=== PATIENT | male | born 1970 | race Caucasian/White ===

== ENCOUNTER 2022-04-01 13:59 | Observation (INO) | payer BC, SELFPAY ==
[2022-04-01] VITALS (72 sets, daily range): BP systolic 120–169; BP diastolic 67–92; PULSE 58–98; RESP 10–30; TEMP 37–37.3; O2SAT 90–98
--- NOTE | 2022-04-01 14:30 | DI.CT_ITS ---
Exam(s) CT HEAD CERVICAL SPINE WO EXAM: CT HEAD CERVICAL SPINE WO COMPARISON: No exams were available for comparison FINDINGS: CT examination of the cervical spine was performed without contrast administration. There is no evidence of acute cervical spine fracture or dislocation. Intervertebral disc spaces are well maintained. Tracheolaryngeal structures appear intact. No cervical mass or adenopathy. Noncontrast cranial CT was performed. Ventricular system is normal in appearance. No evidence of acute intracranial hemorrhage, mass effect, or midline shift. No calvarial fracture. The orbital and temporal bone structures appear intact. Visualized mastoid air cells and paranasal sinuses appear clear. IMPRESSION: No evidence of acute cervical spine injury. No evidence of acute intracranial injury. RADIATION DOSE DELIVERED: 1,394.49mGy.cm Total DLP 1,394.49mGy.cm Total DLP !Error CTDIvol DATA REPOSITORY: All CT scans at this facility are submitted to the National Radiology Data Registry (NRDR) Dose Index Registry (DIR) with the [employer] ([employer]). RADIATION OPTIMIZATION: All CT scans at this facility use at least one of these dose optimization te chniques: automated exposure control; mA and/or kV adjustment per patient size (includes targeted exa ms where dose is matched to clinical indication); or iterative reconstruction.
--- NOTE | 2022-04-01 14:40 | DI.CT_ITS ---
Exam(s) CT CHEST/ABD/PEL W CT THORACIC LUMBAR SPINE REC EXAM: CT CHEST/ABD/PEL W TECHNIQUE: CT examination of the chest, abdomen, and pelvis was performed with bolus infusion of 100 cc of Omnipaque 350. COMPARISON: CT CT THORACIC LUMBAR SPINE REC from 04/01/[address] CHEST/ABD/PEL W from 04/01/2022 FINDINGS: There is no evidence of a thoracic vascular injury. The lungs are predominantly clear except for brenda e subpleural medial right basilar lung radiodensities which are nonspecific but which could represent small areas of contusion and/or atelectasis.. No pneumothorax or pleural effusion. No mediastinal h ematoma. No adenopathy in the chest. Tracheobronchial tree appears intact. The liver, spleen, and pancreas appear normal. Gallbladder and bile ducts are normal. Adrenals and kidneys are unremarkable. No evidence of urinary tract injury or obstruction. No abdominal or pelvic vascular injury seen. No abdominal or pelvic adenopathy. No significant abdomi nal wall hernia or hematoma. No evidence of bowel injury. 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 No fracture seen in the region surveyed.. IMPRESSION: Question minimal right lung base pulmonary contusion, otherwise no evidence of acute injury of the ch est, abdomen, or pelvis. RADIATION DOSE DELIVERED: 1922.27 mGy.cm Total DLP 1922.27 mGy.cm Total DLP !Error CTDIvol DATA REPOSITORY: All CT scans at this facility are submitted to the National Radiology Data Registry (NRDR) Dose Index Registry (DIR) with the [employer] ([employer]). RADIATION OPTIMIZATION: All CT scans at this facility use at least one of these dose optimization te chniques: automated exposure control; mA and/or kV adjustment per patient size (includes targeted exa ms where dose is matched to clinical indication); or iterative reconstruction.
[2022-04-01] MEDS: HYDROmorphone 2 MG/ML VIAL 1 MG IVP ×2 (14:44→15:58)
[2022-04-01] MEDS: Normal Saline 1,000 ML 1000 ML IV (14:46)
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
[2022-04-01 14:58] LABS: Abs Immature Grans 0.06 10^3/uL (0.0-0.06); Absolute Basophil Count 0.04 10^3/uL (0.0-0.2); Absolute Eosinophil Count 0.12 10^3/uL (0.0-0.7); Absolute Lymphocyte Count 1.29 10^3/uL (1.2-3.4); Basophils % 0.4; Eosinophils % 1.1; HCT 44.8 % (40.0-50.0); Immature Grans % 0.5; Lymphocytes % 11.6; MCH 29.2 pg (27.0-33.0); MCHC 33.5 % (32.0-36.0); MCV 87 fL (80-95); MPV 9.6 fL (8.0-11.0); Monocytes % 7.2; Neutrophils % 79.2; Platelet Count 231 10^3/uL (130-400); RBC 5.14 10^6/uL (4.36-5.78); RDW 13.2 % (11.8-14.1); RDW-SD 41.9 fL; WBC 11.13 10^3/uL (4.4-10.8)
[2022-04-01 15:01] LABS: Absolute Neutrophil Count 8.81 10^3/uL (1.2-6.7)
[2022-04-01] MEDS: Omnipaque 350 MG/ML 100 ML BTL IJ (15:07)
[2022-04-01] MEDS: Normal Saline Flush 10 ML SYR IVP (15:07)
[2022-04-01 15:14] LABS: ALT 59 U/L (16-63); AST 32 U/L (15-37); Albumin 3.7 g/dL (3.4-5.0); Alkaline Phosphatase 72 U/L (46-116); Anion Gap 6.6 mmol/L (3-11); BUN 14 mg/dL (7-18); Bilirubin, Total 0.4 mg/dL (0.2-1.0); CO2 29.4 mmol/L (21.0-32.0); CREATININE 1.1 mg/dL (0.70-1.30); Chloride 105 mmol/L (98-107); Glucose 130 mg/dL (74-106); Potassium 3.7 mmol/L (3.5-5.1); Sodium 141 mmol/L (136-145); Total Protein 7.1 g/dL (6.4-8.2)
[2022-04-01 17:20] LABS: Source Nasal/Nares
[2022-04-01] MEDS: diazePAM 5 MG TAB PO (17:36)
[2022-04-01] MEDS: Acetaminophen 500 MG TAB 1000 MG PO ×2 (17:45→23:53)
[2022-04-01 17:54] LABS: COVID-19 PCR Negative (Negative)
[2022-04-01] MEDS: Ketorolac 15 MG/ML VIAL IVP ×2 (17:57→23:53)
--- OUTSIDE RECORDS SUMMARY | 2022-04-01 18:21 | XMS_ITS | Encounter Summary ---
:[address] [facility] Address [address] [place] [address] Care Team Providers Name Role Phone Minda Chaparro MD Primary Care Provider [phone] Reason for Visit Reason Comments Chest Pain Pt ambulatory to triage with , reports sudden onset of left-sided non-radiating chest pressure 5/10, constant, no precipitating or palliative factors. Denies n ausea, diaphoresis or SOB. No cardiac hx. Pt was working with insulation covered in mice feces yesterday. Encounter Details Date Type Department Care Team Description 09/12/2020 Emergency [facility] Peter Amato MD Chest pain, Emergency Department [address] [facility] unspecified type - [facility] (Primary Dx) [address] [facility], [address] 1 [place], [place] [id number] [place] [address] [phone] [id number] (Wo rk) Social History Tobacco Use Types Packs/Day Years Used Date Never Smoker Smokeless Tobacco: Never Used Alcohol Use Standard Drinks/Week Comments No 0 (1 standard drink = 0.6 oz pure alcoho l) Sex Assigned at Date Recorded Not on file COVID-19 Exposure Response Date Recorded In the last month, have you been in contact with No / Unsure 09/12/2020 11:52 EST someone who was confirmed or suspected to have Coronavirus / COVID-19? documented as of this encounter Last Filed Vital Signs Vital Sign Reading Time Taken Comments Blood Pressure 110/64 09/12/2020 1555 EST Pulse 75 09/12/2020 1510 EST Temperature 36.3 ??C (97.3 ??F) 09/12/2020 1151 EST Respiratory Rate 16 09/12/2020 1555 EST Oxygen Saturation 98% 09/12/2020 1555 EST Inhaled Oxygen Concentration - - Weight 97.5 kg (215 lb) 09/12/2020 1151 EST Height 177.8 cm (5' 10) 09/12/2020 1151 EST Body Mass Index 30.85 09/12/2020 1151 EST documented in this encounter Functional Status Functional Status Response Date of Assessment Because of a physical, mental, or emotional condition, No 09/14/2016 does this person have difficulty doing errands alone such as visiting a doctor's office or shopping? Cognitive Status Response Date of Assessment Because of a physical, mental, or emotional condition, No 09/14/2016 does this person have serious difficulty concentrating, remembering, or making decisions? documented as of this encounter Discharge Instructions Peter Mujica MD - 09/12/2020 Try ibuprofen or Tylenol for the pain. Call your regular doctor for follow-up this week. Return if pain gets worse, more central, more severe or if you have increasing shortness of breath, dizziness fainting, fever, cough or any other new symptoms. documented in this encounter Medications at Time of Discharge Medication Sig Dispensed Refills Start Date End Date fluticasone (FLONASE) 50 Instill 1 [place] into 1 Bottle 1 1 mcg/actuation nasal spray both nostrils daily. loratadine (CLARITIN) 10 Take 10 mg by mouth 0 mg tablet daily. documented as of this encounter Discharge Disposition Disposition Code Departure Means Destination Comments Home or Self Mcc Pt D/C to home, verbalized understanding i nstructions. Pt denies any pain , nausea. VSS documented in this encounter ED Notes Peter Amato MD - 09/12/2020 1224 EST This patient received an evaluation and medical screening exam for emergent medical conditions at the [facility] on 09/12/2020 Scribe attestation: This documentation is recorded by Shar Ambrose acting as Scribe under the direction and presence of Peter Amato MD. Peter Amato MD: I personally performed the services recorded by the scribe in my presence. I confirm the scribe's documentation has been reviewed by me to accurately and completely record my work, treatment, procedures, and medical decision making. HPI Brian Wu is a 50 y.o. male with PMH including elevated cholesterol who presents to theED for chest pressure. Patient reports at 0900 today he was working on his computer when he experienced the gradual onset of chest pressure to the top of his chest. He specifically denies any chest pain. This pressure is aggravated by deep inspiration and he has had trouble taking in a deep breath. Symptoms have been relatively constant since onset. Brian has never had this pain in the past. Hemade us aware that yesterday he and his spouse were putting up insulation in their garage and notes it was quite ronni and they were a fairly large amount of mouse feces in the old insulation. They were not wearing dust mask.. He has had a runny nose since applying the insulation. This runny nose is consistent with his priorallergies. He has no personal history of HTN, DM, or lower extremity surgeries. Patient denies lowerextremity swelling, recent travel, and shortness of breath. Vitals are stable upon ED arrival. SHx: Denies a smoking history. FHx: No known family history of cardiac issues. History was provided by: Patient, spouse, and medical records. Patient's pertinent PMH, FH, SH were reviewed and updated as needed. ROS A 10-point review of systems was performed. The patient answered negative to all questions with the exceptions of those explicitly detailed as positives in the HPI. Pertinent negatives are also explicitly stated. Physical Exam Vital Signs Vitals Reassessment?: Yes Temp: 36.3 ??C (97.3 ??F) Temp src: Oral Pulse: 53 Resp: 16 SpO2: 98 % BP: 133/84 BP Device: BP Machine BP Patient Position: Sitting BP Cuff Location: Right arm O2 Device: None (Room air) Nursing notes and vital signs were reviewed. Constitutional: Well appearing in no acute distress Head: Normocephalic and atraumatic, no tenderness Eyes: Pupils equal and reactive to light, no scleral icterus Mouth: Moist oral mucosa without apparent lesions Neck: Full ROM, no cervical lymphadenopathy Heart: Mildly bradycardic rate and regular rhythm without murmurs, gallops, rub Lungs: Clear and equal bilaterally Abdomen: Soft, nontender, nondistended, positive bowel sounds Skin: No overt rashes on exposed skin Musculoskeletal: Chest wall is completely non-tender to palpation. Extremities: Moving spontaneously, warm and well perfused. No evidence of trauma. No edema or cords. Neuro: Grossly neurologically intact with normal speech, strength, and coordination. Psych: No agitation or overt thought disorder Medical Decision Making The differential diagnosis for this patient includes but is not limited to: Spontaneous pneumothorax, PE, musculoskeletal pain, bronchospasm, ACS Laboratory, Imaging, and Other Data Results The patient had an EKG which was independently reviewed and interpreted by me. Sinus bradycardia rate of 56. ??EKG otherwise of normal QRS morphology, normal intervals and axis, normal ST and T wave segments. ??Overall impression sinus bradycardia otherwise normal EKG. Labs Reviewed COMPLETE BLOOD COUNT AND DIFFERENTIAL - Abnormal Result Value Status WBC 6.17 Final RBC 5.25 Final Hemoglobin 15.3 Final HCT 44.7 Final MCV 85 Final MCH 29.1 Final MCHC 34.2 Final RDW-CV 12.7 Final RDW-SD 39.5 Final PLT 235 Final MPV 9.2 (*) Final Neutrophils 49.8 Final Lymphocytes 35.3 Final Monocytes 11.8 Final Eosinophils 2.1 Final Basophils 0.8 Final Immature Grans 0.2 Final Absolute Neutrophils 3.07 Final Absolute Lymphocytes 2.18 Final Absolute Monocytes 0.73 Final Absolute Eosinophils 0.13 Final Absolute Basophils 0.05 Final Absolute Immature Grans 0.01 Final Type of Differential: Auto Final BUN - Normal BUN 20 Final CREATININE - Normal Creatinine 0.88 Final eGFR 100 Final ELECTROLYTES - Normal Sodium 138 Final Potassium 4.7 Final Chloride 101 Final CO2 Total 27 Final TROPONIN I - Normal Troponin I <0.034 Final Narrative: The results of this assay can be falsely lowered due to the consumption of Biotin. MAGNESIUM - Normal Magnesium 1.9 Final SCREENING GLUCOSE - Normal Glucose, Screening 84 Final D-DIMER - Normal D-Dimer <200 Final Narrative: Cutoff value for the exclusion of DVT and PE: 230 ng/mL D-dimer units. Any use of the age-adjusted cutoff value is a post-analytic modification of this FDA- approved test and is considered off-label use of the test result. [facility] laboratory does not have literature to support the validity of an age-adjusted cutoff for our specific assay. TROPONIN I - Normal Troponin I <0.034 Final Narrative: The results of this assay can be falsely lowered due to the consumption of Biotin. HOLD BLUE TOP Hold Hold Final LIPID PROFILE (INCLUDES CHOLESTEROL, TRIGLYCERIDES, HDL, LDL) Cholesterol 250 Final HDL 46 Final LDL, Calculated 195 Final Triglyceride 47 Final Chol/HDL Ratio 5.4 Final Non HDL Cholesterol 204 Final Imaging Results XR CHEST 2 VIEWS (Final result) Result time 09/12/20 13:04:54 Final result Impression: 1. Mild cardiomegaly. The lungs are clear. Narrative: XR CHEST 2 VIEWS 09/12/2020 12:40 PM CLINICAL HISTORY/COMMENTS: L CP, pleuritic COMPARISON: None. TECHNIQUE: Frontal and lateral views of the chest were performed. FINDINGS: Soft tissues and extrathoracic findings: No abnormalities. Bones: Normal for age. Cardiac and mediastinal contours: Heart size is mildly enlarged. Mediastinum appears normal. Lungs: Normal. Pleura/diaphragms: Normal. (All pertinent data was obtained, reviewed, and interpreted by me, contemporaneously with patient care. Radiology interpretation also reviewed, if available.) Procedures Procedures ED Course A medical screening exam was performed. Patient presents with somewhat atypical left upper lateral chest pain. There is no real tenderness and no pain with movement of the arm. Vital signs are stable here. No history of ACS and has minimal risk factors for ACS. Overall the presentation is not particular concerning for coronary artery disease but will evaluate for other process including pulmonary embolus. Labs were drawn and were normal including normal D-dimer. Initial troponin normal. Second troponin done about 3 hours after presentation remains normal. Chest x-ray was also normal. At this point life-threatening or severe cause of the chest pain have effectively been ruled out. Certainly could be due to inhaling dust yesterday with some mild subclinical bronchospasm although he is not wheezing and has normal vitals. May also be musculoskeletal or pleuritic pain. I think he is sta ble for outpatient management. Recommended ibuprofen or Tylenol for the pain. Follow-up with PCP. Warned to return if he has worsening pain, more central pain, shortness of breath dizziness fever or other new symptoms. He was discharged in stable condition. Clinical Impression Final diagnoses: Chest pain, unspecified type Pain Management While under my care in the Emergency Department, the patient's pain was managed to an adequate levelweighing risk vs. benefit of medication. Pain level at disposition was 3/10. Any further pain treatment will be at the discretion of the provider following up with the patient based on their clinical assessment. Condition at departure from the Emergency Department: Stable Disposition Disposition decisions were made weighing risks and benefits of hospitalization vs. outpatient treatment, the risk for further decompensation, and the patient's wishes. - If discharged: the patient was stable, improved, or requested discharge. Prior to discharge my usual and customary return precautions were reviewed with the patient and/or family. This included follow-up instructions and reasons to return to the Emergency Department if condition worsens, does not improve as expected, or other new concerns arise. - If admitted: the patient???s condition was severe enough to require additional inpatient evaluation and treatment, or the patient was at risk of sudden decompensation. Sarah Clark - 09/12/2020 1153 EST 12 Lead EKG Performed by SARAH YBARRA and shown to Dr. Cordova. documented in this encounter Plan of Treatment Not on filedocumented as of this encounter Goals Goal Patient Goal Associated Recent Patient-Stated? Author Type Problems Progress LDL < 100 Result Component Elevated 195 No [place], cholesterol (09/12/2020 Lorenza Vazquez 12:04 EST) documented as of this encounter Procedures Procedure Name Priority Date/Time Associated Comments Diagnosis ECG REPORT - SCANNED 09/19/2020 12:32 EST TROPONIN I Routine 09/12/2020 15:10 Results for this EST procedure are i n the results section. XR CHEST 2 VIEWS STAT 09/12/2020 12:55 Results for this EST procedure are i n the results section. HOLD BLUE TOP STAT 09/12/2020 12:04 Results fo r this EST procedure are i n the results section. SCREENING GLUCOSE STAT 09/12/2020 12:04 Result s for this EST procedure are i n the results section. TROPONIN I STAT 09/12/2020 12:04 Results for this EST procedure are i n the results section. D-DIMER STAT Add-on 09/12/2020 12:04 Results for this EST procedure are i n the results section. COMPLETE BLOOD COUNT STAT 09/12/2020 12:04 Res ults for this AND DIFFERENTIAL EST procedure a re in the results section. BUN STAT 09/12/2020 12:04 Results for this EST procedure are i n the results section. MAGNESIUM STAT 09/12/2020 12:04 Results for this EST procedure are i n the results section. CREATININE STAT 09/12/2020 12:04 Results for this EST procedure are i n the results section. LIPID PROFILE Add-On 09/12/2020 12:04 Results fo r this (INCLUDES EST procedure are i n CHOLESTEROL, the results TRIGLYCERIDES, HDL, section. LDL) ELECTROLYTES STAT 09/12/2020 12:04 Results for this EST procedure are i n the results section. EKG 12-LEAD STAT 09/12/2020 11:49 Results for this EST procedure are i n the results section. documented in this encounter Results TROPONIN I (09/12/2020 15:10 EST) Pathologist Sig nature Troponin I (ng/mL) <0.034 <0.034 ng/mL [facility] Specimen Blood - Venous blood (substance) Narrative [facility] - 09/12/2020 15:50 EST The results of this assay can be falsely lowered due to the consumption of Biotin. Performing Organization Address City/State/ZIP Code Phon e Number [facility] [address] [place] [address] SERVICES XR CHEST 2 VIEWS (09/12/2020 12:55 EST) Anatomical Region Laterality Modality Computed Radiography Specimen Impressions [facility] - 09/12/2020 13:04 EST 1. ??Mild cardiomegaly. The lungs are cl ear. Narrative [facility] - 09/12/2020 13:04 EST XR CHEST 2 VIEWS ??09/12/2020 12:40 PM CLINICAL HISTORY/COMMENTS: L CP, pleuritic COMPARISON: None. TECHNIQUE: Frontal and lateral views of the chest w ere performed. FINDINGS: Soft tissues and extrathoracic findings: ??No abnormalities. Bones: Normal for age. Cardiac and mediastinal contours: Heart size is mildly enlarged. Mediastinum appears normal. Lungs: Normal. ?? Pleura/diaphragms: Normal. Procedure Note Karely Thompson MD - 09/12/2020 XR CHEST 2 VIEWS 09/12/2020 12:40 PM CLINICAL HISTORY/COMMENTS: L CP, pleuritic COMPARISON: None. TECHNIQUE: Frontal and lateral views of the chest w ere performed. FINDINGS: Soft tissues and extrathoracic findings: No abnormalities. Bones: Normal for age. Cardiac and mediastinal contours: Heart size is mildly enlarged. Mediastinum appears normal. Lungs: Normal. Pleura/diaphragms: Normal. IMPRESSION 1. Mild cardiomegaly. The lungs are franco r. Performing Organization Address City/State/ZIP Code Phon e Number [facility] LIPID PROFILE (INCLUDES CHOLESTEROL, TRIGLYCERIDES, HDL, LDL) (09/12/2020 12:04 EST) Cholesterol 250 See Note [facility] Comment: mg/dL [facility] Acceptable: ?<200 mg/dL SERVICES Borderline High: 200-239 mg/dL High: ?> or = 240 mg/dL HDL 46 See Note [facility] Comment: mg/dL [facility] Low: ? <40 mg/dL SERVICES Normal: ??40-60 mg/dL High: ?>60 mg/dL LDL, Calculated 195 See Note [facility] Comment: mg/dL [facility] Optimal: ? <100 mg/dL SERVICES Near Optimal: ?100-129 mg/dL Borderline High: 130-159 mg/dL High: ?160-189 mg/dL Very High: ? > or = 190 mg/dL Triglyceride 47 See Note [facility] Comment: mg/dL [facility] Normal: ? <150 mg/dL SERVICE S Borderline High: ??150 - 199 mg/dL High: ? 200 - 499 mg/dL Very High: ?> or = 500 mg/dL Chol/HDL Ratio 5.4Comment: No See Note [facility] reference range [facility] has been SERVICES established for CHOL/HDL ratio. Non HDL Cholesterol 204 See Note [facility] Comment: mg/dL [facility] Desirable: ?<130 mg/dL SERVICES Borderline High: ??130-159 mg/dL High: ? 160-189 mg/dL Very High: ?> or = 190 mg/dL Specimen Blood - Venous blood (substance) Performing Organization Address City/[facility]/ZIP Code Phon e Number [facility] [address] [place] [address] SERVICES D-DIMER (09/12/2020 12:04 EST) Pathologist Sig nature D-Dimer <200 <=230 ng/mL DDU [facility] Specimen Blood - Venous blood (substance) Narrative [facility] - 09/12/2020 12:49 EST Cutoff value for the exclusion of DVT and PE: 230 ng/mL D-dimer units. Any use of the age-adjusted cu toff value is a post-analytic modificati on of this FDA-approved test and is considered off-label use of the test result. [facility] laboratory does not have literature to support the validity of an age-adjusted cutoff for our specific assay. Performing Organization Address City/[facility]/ZIP Code Phon e Number [facility] [address] [place] [phone] SERVICES HOLD BLUE TOP (09/12/2020 12:04 EST) Pathologist Sig nature Hold Hold [facility] Specimen Blood - Venous blood (substance) Performing Organization Address City/[facility]/ZIP Code Phon e Number [facility] [address] [place] [address] SERVICES SCREENING GLUCOSE (09/12/2020 12:04 EST) Pathologist Sig nature Glucose, Screening 84 70 - 100 mg/dL [facility] Specimen Blood - Venous blood (substance) Performing Organization Address [facility]/ZIP Code Phon e Number [facility] [address] [place] [address] SERVICES MAGNESIUM (09/12/2020 12:04 EST) Pathologist Sig nature Magnesium 1.9 1.7 - 2.8 mg/dL [facility] Specimen Blood - Venous blood (substance) Performing Organization Address City/State/ZIP Code Phon e Number [facility] [address] [place] [phone] SERVICES TROPONIN I (09/12/2020 12:04 EST) Pathologist Sig nature Troponin I (ng/mL) <0.034 <0.034 ng/mL [facility] Specimen Blood - Venous blood (substance) Narrative [facility] - 09/12/2020 12:44 EST The results of this assay can be falsely lowered due to the consumption of Biotin. Performing Organization Address City/[facility]/ZIP Code Phon e Number [facility] [address] [place] [phone] SERVICES ELECTROLYTES (09/12/2020 12:04 EST) Pathologist Sig nature Sodium 138 136 - 145 mEq/L [facility] Potassium 4.7 3.5 - 5.0 mEq/L [facility] Chloride 101 96 - 110 mEq/L [facility] ORY SERVICES CO2 Total 27 22 - 32 mEq/L [facility] RY SERVICES Specimen Blood - Venous blood (substance) Performing Organization Address [facility]/ZIP Code Phon e Number [facility] [address] [place] [phone] SERVICES CREATININE (09/12/2020 12:04 EST) Creatinine 0.88 0.66 - 1.25 [facility] mg/dL LABORATORY SERVICES eGFR 100Comment: eGFR >60 [facility] calculated using mL/min/1.73m2 LABORATORY SERVICES CKD-EPI equation for non- Americans. Multiply eGFR by 1.16 for patients. Specimen Blood - Venous blood (substance) Performing Organization Address City/State/ZIP Code Phon e Number [facility] [address] [place] [phone] SERVICES BUN (09/12/2020 12:04 EST) Pathologist Sig nature BUN 20 10 - 26 mg/dL [facility] RY SERVICES Specimen Blood - Venous blood (substance) Performing Organization Address City/[facility]/ZIP Code Phon e Number [facility] [address] [place] [address] SERVICES (ABNORMAL) COMPLETE BLOOD COUNT AND DIFFERENTIAL (09/12/2020 12:04 EST) Pathologist Sig nature WBC 6.17 4.00 - 10.40 [facility] LABORATORY SERVICES RBC 5.25 4.36 - 5.78 [facility] LABORATORY SERVICES Hemoglobin 15.3 13.8 - 17.3 [facility] gm/dL LABORATORY SERVICES HCT 44.7 39.5 - 50.2 % [facility] MCV 85 81 - 95 fl [facility] MCH 29.1 27.6 - 33.0 pg [facility] MCHC 34.2 32.8 - 36.4 [facility] gm/dL LABORATORY SERVICES RDW-CV 12.7 <14.2 % [facility] RDW-SD 39.5 <46.0 fl [facility] PLT 235 141 - 377 K/[facility] LABORATORY SERVICES MPV 9.2 (L) 9.5 - 12.7 fl [facility] Neutrophils 49.8 % [facility] Lymphocytes 35.3 % [facility] Monocytes 11.8 % [facility] Eosinophils 2.1 % [facility] Basophils 0.8 % [facility] Immature Grans 0.2 % [facility] Absolute Neutrophils 3.07 2.20 - 8.85 [facility] LABORATORY SERVICES Absolute Lymphocytes 2.18 1.09 - 3.30 [facility] LABORATORY SERVICES Absolute Monocytes 0.73 0.10 - 0.80 [facility] LABORATORY SERVICES Absolute Eosinophils 0.13 0.03 - 0.61 [facility] LABORATORY SERVICES Absolute Basophils 0.05 0.01 - 0.11 [facility] LABORATORY SERVICES Absolute Immature 0.01 0.00 - 0.06 [facility] SERVICES Type of Differential: Auto [facility] Specimen Blood - Venous blood (substance) Performing Organization Address City/State/ZIP Code Phon e Number [facility] [address] [place] [address] SERVICES EKG 12-LEAD (09/12/2020 11:49 EST) Specimen Narrative [facility] EKG - 09/19/2020 12:2 6 EST ?[facility] Emergency ? Test Date: ?2020-09-12 Pat Name: ? BRIAN WU ? Department: ?? ED ? Room: ? Gender: ? Male ? 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 Requested By: RAVEN HEDRICKH Order Number: [id number] ? Reading MD: ?? PERRY JULIAN MD ? Measurements Intervals ?[place] ? Rate: ? 56 ? P: ?56 MT: ? 155 ?QRS: ?51 QRSD: ? 95 ? T: ?53 QT: ? 387 ? QTc: ?374 ? Interpretive Statements [facility] Automated Interpretation. ??Provider Int erpretation to follow. No previous ECG available for comparison I reviewed the tracing and have either a greed or edited the findings in this report. Electronically Signed On 12:26:44 EST by PERRY JULIAN MD. 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 Provider Inter pretation to follow. No previous ECG available for comparison I reviewed the tracing and have either a greed or edited the findings in this report. Electronically Signed On 12:26:44 EST by PERRY JULIAN MD. 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
--- OUTSIDE RECORDS SUMMARY | 2022-04-01 18:21 | XMS_ITS | Encounter Summary ---
:1970 Author Organization [facility] Address [address] [place] [address] Care Team Providers Name Role Phone Minda Chaparro MD Primary Care Provider [phone] Reason for Referral Referral (Routine) - Specialty Report Received Specialty Diagnoses / Procedures Referred By Contact Refer red To Contact Diagnoses Right upper limb pain Rosamaria Espino, ROMA [address] [place] [address] Referral ID Status Reason Start Expiration Visits Visits Date Date Requested Authorized [id number] Specialty Patient 06/29/20 1 1 Report Preference 19 Received Question Answer Reason for Request: right arm pain Practice Site (External Referral Only): PT [facility] Reason for Visit Reason Onset Date Comments Referral Request 06/29/2019 Athletic Training Encounter Details Date Type Department Care Team Description 06/29/2019 Orders Only [facility] Minda Chaparro Right upp er limb pain Adult Primary Care - MD Mervat (Primary Dx) [place] [address] [facility] [address] [place] [address] [place], [place] [phone] Social History Tobacco Use Types Packs/Day Years Used Date Never Smoker Smokeless Tobacco: Never Used Alcohol Use Standard Drinks/Week Comments No 0 (1 standard drink = 0.6 oz pure alcoho l) Sex Assigned at Date Recorded Not on file documented as of this encounter Functional Status Functional Status Response [...] making decisions? documented as of this encounter Progress Notes Beulah Lauren - 06/29/2019 1430 EST PT [facility] asking for an additional referral for Athletic Training Order pended - please sign documented in this encounter Plan of Treatment Scheduled Referrals Name Type Priority Associated Diagnoses Order S chedule AMB CONS/FOLLOW UP Outpatient Referral Routine Right upper hernandez b Ordered: ATHLETIC TRAINING pain 06/29/2019 documented as of this encounter Goals Goal Patient Goal Associated Recent Patient-Stated? Author Type Problems Progress LDL < 100 Result Component Elevated 195 No Greenoug h, cholesterol (09/12/2020 Lorenza ISara 12:04 EST) documented as of this encounter Visit Diagnoses Diagnosis Right upper limb pain - Primary Pain in limb documented in this encounter Care Teams Neck Band Maker Relationship Specialty Start Date End Date Minda Chaparro MD PCP - General 02/19/[address] [place] [phone] documented as of this encounter
--- OUTSIDE RECORDS SUMMARY | 2022-04-01 18:21 | XMS_ITS | Encounter Summary ---
:1970 Author Organization [facility] Address [address] [place] [address] Care Team Providers Name Role Phone Minda Chaparro MD Primary Care Provider [phone] Reason for Visit Reason Onset Date Comments Rash 10/11/2021 Encounter Details Date Type Department Care Team Description 10/11/2021 Telephone [facility] Adult Minda Chaparro Rash Primary Care - Elmo lancaster MD [address] [facility] [address] [place] [address] [place], [place] [phone] (Wo rk) Social History Tobacco Use Types [...] making decisions? documented as of this encounter Miscellaneous Notes Telephone Encounter - Gaye Ballesteros RN - 10/11/2021 1000 EST Amrit states, last night, I was scratching my side, my noticed a rash. It is a red/bumpy rash that is on his bilateral arms, chest, stomach, low back and top of head. C/o sever itching. No respiratory distress. No new meds, food, skin care products,detergents or dog shampoo. No c/o fever, pain or blisters Used poison Migdalia cream and benadryl last night which helped him get some sleep. office visit today at 15:45 elephone Encounter - Jesica Phelps - 10/11/2021 0947 EST Pt noticed a rash/skin condition on arm, body, head. Raised bumps that are itchy and red. Came out of nowhere - Put poison migdalia cream, took benadryl - that helped with the itch documented in this encounter Plan of Treatment Not on filedocumented as of this encounter Goals Goal Patient Goal Associated Recent Patient-Stated? Author Type Problems Progress LDL < 100 Result Component Elevated 195 No Greenoug h, cholesterol (09/12/2020 Lorenzacaesar Vazquez 12:04 EST) documented as of this encounter Visit Diagnoses Not on filedocumented in this encounter Care Teams Wood Room Supervisor Relationship Specialty Start Date End Date Minda Chaparro MD PCP - General 02/19/[address] [place] [phone] documented as of this encounter
--- OUTSIDE RECORDS SUMMARY | 2022-04-01 18:21 | XMS_ITS | Encounter Summary ---
:1970 Author Organization [facility] Address [address] [place] [address] Care Team Providers Name Role Phone Minda Chaparro MD Primary Care Provider [phone] Reason for Referral PT/OT/ST (Routine) - Specialty Report Received Specialty Diagnoses / Procedures Referred By Contact Refer red To Contact Diagnoses Acute pain of right knee Leni Damico PA-C [address] [place] [address] Referral ID Status Reason Start Expiration Visits Visits Date Date Requested Authorized [id number] Specialty Specialty 03/30/2020 1 1 Report Services Received Required Question Answer Reason for Request: 2-3 weeks of right knee pain and stiffness, suspected OA Practice Site (External Referral Only): [address] Reason for Visit Reason Comments Knee Pain Right side. Telemedicine Video Visit Encounter Details Date Type Department Care Team Description 03/30/2020 Telemedicine [facility] Leni Damico raina pain of right Adult Primary Care - DONITA Hurley knee (Primary Dx) [place] [address] [facility] [address] [place] [phone] (Wo rk) Social History Tobacco Use [...] documented as of this encounter Progress Notes Leni Damico PA-C - 03/30/2020 1415 EDT Patient ID: Endy Arambula is a 49 y.o. male patient of Minda Chaparro Chief Complaint: Knee Pain (Right side. ) and Telemedicine Video Visit Visit type: Video visit on Zoom due to COVID19 pandemic History of present Illness (HPI): Patient here with complaint of right knee pain. Pain started a few weeks ago. Prior to onset had fallen a couple of times mountain biking without any specific injury. Bothers most with extending leg and climbing up stairs. Pain is located superior adjacent to patella. Pain is 10/10 at it's worst,sharpwhen being used. He has associated stiffness in the mornings and after inactivity. He denies associated swelling. Treatments tried: none. Reports he can fully bend and extend his leg with pain. Denies feeling of instability or weakness. Has been noticing clicking and popping in both joints in general. Normally mountain bikes for exercise. Review of Systems: Pertinent positives and negatives noted in HPI. Patient Active Problem List Diagnosis ??? Allergic rhinitis ??? Elevated cholesterol Current Outpatient Medications Medication Sig ??? fluticasone (FLONASE) 50 mcg/actuation nasal spray Instill 1 [place] into both nostrils daily. ??? loratadine (CLARITIN) 10 mg tablet Take 10 mg by mouth daily. No Known Allergies Social History Tobacco Use ??? Smoking status: Never Smoker ??? Smokeless tobacco: Never Used Substance Use Topics ??? Alcohol use: No Alcohol/week: 0.0 standard drinks ??? Drug use: No Objective: Physical Exam: Gen: well nourished, well developed, in no distress, sitting comfortably Psych: alert, cooperative, pleasant Respiratory: No respiratory distress. Neuro: Alert, speech is normal. Skin: No pallor or jaundice, non-diaphoretic Knee: No apparent swelling or erythema of knee. Assessment & Plan: New onset right knee pain and stiffness. Difficult to determine exact etiology without exam but I suspect it is a flare of arthritis in the knee given atraumatic onset and stiffness, possibly triggeredby previous falls. Recommended twice daily Aleve for the next 10-14 days, icing, avoiding aggravating activities and course of PT. After the visit, reviewing symptoms, I felt it would be worthwhile to rule out Lyme disease given lack of previous symptoms in knee and frequent outdoor exposure with mountain biking. Left message on identified VM reviewing this concern and asking patient to have blood test to rule out this possibility. Endy was seen today for knee pain and telemedicine video visit. Diagnoses and all orders for this visit: Acute pain of right knee - AMB CONS/FOLLOW UP PHYSICAL THERAPY; Future - LYME AB; Future Pt Ed: - There are no on file for this visit. No follow-ups on file. The concept of ???Telemedicine?? has been described to the patient.? Patient has been informed of the anticipated benefits and possible risks.? Patient understands the information provided regarding telemedicine, has had the opportunity to ask questions about this information, and all questions have been answered to patient???s satisfaction. Patient consents for the use of telemedicine in his/her medical care and authorizes the transmission of any relevant medical information to providers and theirstaff involved in patient???s medical or mental health care. TELEMEDICINE VIDEO VISIT Today's visit was provided through telemedicine video conferencing: The location of the patient : Workplace The location of the provider: Clinic Exam Room The following staff and their role did participate in today's encounter visit: Leni Damico PA-C Portions of this document may have been prepared with speech recognition software or keyboard clinical data abstractor techniques. Minor irregularities or keyboarding misprints may be present. documented in this encounter Plan of Treatment Scheduled Referrals Name Type Priority Associated Diagnoses Order S chedule AMB CONS/FOLLOW UP Outpatient Referral Routine Acute pain of r ight Expected: PHYSICAL THERAPY knee 03/30/2020 (Approximate) documented as of this encounter Goals Goal Patient Goal Associated Recent Patient-Stated? Author Type Problems Progress LDL < 100 Result Component Elevated 195 No Greenzeenatg h, cholesterol (09/12/2020 Lorenza Vazquez 12:04 EST) documented as of this encounter Visit Diagnoses Diagnosis Acute pain of right knee - Primary documented in this encounter Care Teams Glass Furnace Operator Relationship Specialty Start Date End Date Minda Chaparro MD PCP - General 02/19/[address] [place] [phone] documented as of this encounter
--- OUTSIDE RECORDS SUMMARY | 2022-04-01 18:21 | XMS_ITS | Encounter Summary ---
:1970 Author Organization [facility] Address [address] [place] [address] Care Team Providers Name Role Phone Minda Chaparro MD Primary Care Provider [phone] Reason for Visit Reason Onset Date Comments Cough 08/17/2021 Pharyngitis 08/17/2021 Nasal Congestion 08/17/2021 Encounter Details Date Type Department Care Team Description 08/17/2021 Telephone [facility] Minda Chaparro Cough; Ph aryngitis; Adult Primary Care - MD Mervat Nasal Congestion [address] [phone] Social History Tobacco Use Types Packs/Day Years Used Date Never Smoker Smokeless Tobacco: Never Used Alcohol Use Standard Drinks/Week Comments No 0 (1 standard drink = 0.6 oz pure alcoho l) Sex Assigned at Date Recorded Not on file COVID-19 Exposure Response Date Recorded In the last month, have you been in contact with someone Yes 08/17/2021 9:58 EST who was confirmed or suspected to have Coronavirus / COVID-19? documented as of this encounter Functional Status [...] this encounter Miscellaneous Notes Telephone Encounter - Minda Chaparro MD - 08/17/2021 1057 EST OK for COVID test is he wants one elephone Encounter - Gaye Ballesteros RN - 08/17/2021 1026 EST Amrit states, I had a scratchy throat on Saturday, my boss told me to get COVID tested. He did two home tests and they were both positive. Advised, per our protocol, we classify a home test that is positive as being positive that he has COVID. 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 I would like him to have a PCR test for confirmation. They Have NOT been quarantining from each other. C/o a thick throat, cough and runny nose. Patient Education Topic: covid testing Method: Verbal Taught to: Patient Barriers: None Outcomes: independent and verbalized understanding elephone Encounter - Emily Colon - 08/17/2021 0958 EST Reason for Call: Cough, Pharyngitis, and Nasal Congestion Summary/Symptoms: Pt says he had a COVID + coworker at work. Pt says he started with a scratchy throat on Saturday. 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 Pt would like a PCR test. Pt has had his vaccine & booster. Onset and Duration: see above Does the patient have a computer, laptop or smart phone with high speed & video capability? N/A If so, would they be interested in doing a video visit via Zoom? N/A Appointment Offered? No Emily Colon 08/17/2021 10:02 documented in this encounter Plan of Treatment Not on filedocumented as of this encounter Goals Goal Patient Goal Associated Recent Patient-Stated? Author Type Problems Progress LDL < 100 Result Component Elevated 195 No Greenoug h, cholesterol (09/12/2020 Lorenza Vazquez 12:04 EST) documented as of this encounter Results (ABNORMAL) COVID-19 TESTING (08/17/2021 14:24 EST) COVID-19 rt-PCR Positive (AA) Negative [facility] Result Comment: [facility] This test has not been FDA c leared or approved. This test has been authorized by FDA under an EUA for use by authorized laboratories. This test has been authorized only for detection of nucleic acid fro SERVICES m 2019-nCoV, not for any oth er viruses or pathogens. This test is only authorized for the duration of the declaration that circumstances exist justifying the authorization of emergency use of in vitro d iagnostic tests for detectio n and/or diagnosis of 2019-nCoV under section 564(b)(1) of Act, 21 U.S.C ?? 360bbb-3(b) (1), unless the authorization is terminated or revoked sooner. This test was developed and its performance characteristics determined by [facility]. It has not been cleared or approved by the US Food and Drug Administration. FDA does not require this test to go through premarket FDA review. This t est is used for clinical purposes. It should not be regarded as investigational or for research. This laboratory is certified under the Clinical Laboratory Improvement Amendm ents (CLIA) as qualified to perform high complexity clinical laboratory testing. This test is based on the CD C COVID-19 Emergency Use Authorization (EUA) assay, with minor modification as defined by the FDA Performed on the [employer] 7 Pro RT-PCR System. Performing Lab [facility] Specimen Swab - Entire nasopharynx (body structur e) Performing Organization Address City/State/ZIP Code Phon e Number [facility] [address] [place] [address] SERVICES documented in this encounter Visit Diagnoses Diagnosis Runny nose - Primary Other diseases of nasal cavity and sinus es Cough documented in this encounter Care Teams Patient Access Manager Relationship Specialty Start Date End Date Minda Chaparro MD PCP - General 02/19/[address] [place] [phone] documented as of this encounter
--- OUTSIDE RECORDS SUMMARY | 2022-04-01 18:21 | XMS_ITS | Encounter Summary ---
:1970 Author Organization [facility] Address [address] [place] [address] Care Team Providers Name Role Phone Minda Chaparro MD Primary Care Provider [phone] Reason for Referral PT/OT/ST (Routine) - Closed Specialty Diagnoses / Procedures Referred By Contact Refer red To Contact Diagnoses Right arm pain Rosamaria Espino NP [address] [place] [address] Referral ID Status Reason Start Date Expiration Date Visits V isits Requested Authorized [id number] Closed Specialty 06/19/2019 1 1 Services Required Question Answer Reason for Request: right arm pain adiology Services (Routine) - Authorization Not Required Specialty Diagnoses / Procedures Referred By Contact Refer red To Contact Diagnoses Right arm pain Rosamaria Espino NP Procedures ELBOW 2 VIEWS [address] [place] [address] Referral ID Status Reason Start Expiration Visits Visits Date Date Requested Authorized [id number] Authorization Not 06/19/2019 1 1 Required Reason for Visit Reason Comments Pain R arm Encounter Details Date Type Department Care Team Description 06/19/2019 [facility] Rosamaria Espino, Right arm pain (Primary Dx); Adult Primary Care - CHRISTMAS BELL RINGER Muscle strain of forearm, right, initial encounter [place] [address] [address] [place], [place] [phone] Social History Tobacco Use Types Packs/Day Years Used Date Never Smoker Smokeless Tobacco: Never Used Alcohol Use Standard Drinks/Week Comments No 0 (1 standard drink = 0.6 oz pure alcoho l) Sex Assigned at Date Recorded Not on file documented as of this encounter Last Filed Vital Signs Vital Sign Reading Time Taken Comments Blood Pressure 110/80 06/19/2019821 EST Pulse 68 06/19/2019821 EST Temperature 36.7 ??C (98.1 ??F) 06/19/2019821 EST Respiratory Rate 12 06/19/2019 08 EST Oxygen Saturation - - Inhaled Oxygen Concentration - - Weight 92.5 kg (204 lb) 06/19/2019821 EST Height - - Body Mass Index 28.86 09/14/2016 0900 EST documented in this encounter Functional Status [...] documented as of this encounter Progress Notes Rosamaria Espino NP - 06/19/2019 0815 EST Subjective: Patient ID: Endy Arambula is an 49 y.o. male. Chief Complaint Patient presents with ??? Pain R arm HPI Endy Arambula is a 49 y.o. male with no significant PMHx who presents today with c/o right arm pain that first occurred over a month ago while playing racquet ball. Pain is located in the dorsal forearm region and has not noticed any swelling or redness. Pain is intermittent, mostly during use such as grasping an object. Pain is described as aching. Patient has tried ice and heat with no improvement. Has continued to play racquet ball a few other times, including with an arm brace which helped somewhat but is concerned today because has never had an injury last this long and is showing no signs of improvement. Patient Active Problem List Diagnosis ??? Allergic rhinitis ??? Elevated cholesterol No past medical history on file. Current Outpatient Medications on File Prior to Visit Medication Sig Dispense Refill ??? fluticasone (FLONASE) 50 mcg/actuation nasal spray Instill 1 [place] into both nostrils daily. 1 Bottle 1 ??? loratadine (CLARITIN) 10 mg tablet Take 10 mg by mouth daily. No current facility-administered medications on file prior to visit. No Known Allergies Social Social History Tobacco Use ??? Smoking status: Never Smoker ??? Smokeless tobacco: Never Used Substance Use Topics ??? Alcohol use: No Alcohol/week: 0.0 standard drinks ??? Drug use: No Review of Systems Constitutional: Negative for chills and fever. Respiratory: Negative for shortness of breath. Cardiovascular: Negative for chest pain. Gastrointestinal: Negative for nausea and vomiting. Musculoskeletal: Positive for myalgias. Skin: Negative for rash. Neurological: Positive for focal weakness. Negative for sensory change and headaches. - See HPI Objective: BP 110/80 Pulse 68 Temp 36.7 ??C (98.1 ??F) (Oral) Resp 12 Wt 92.5 kg (204 lb) BMI 28.86 kg/m?? Physical Exam Constitutional: He appears well-developed and well-nourished. Cardiovascular: Normal rate and regular rhythm. Pulmonary/Chest: Effort normal and breath sounds normal. Musculoskeletal: Right forearm: He exhibits tenderness. He exhibits no swelling and no edema. Right forearm is negative for any erythema or edema. Pain with flexion and extension of the wrist. No pain with flexion or extension of the elbow. No pain with palpation of wrist or elbow. Pain with palpation of the dorsal extensor muscles. A letter ID that is valid in this context was not selected. Assessment/Plan: Endy Arambula is a 49 y.o. male with no significant PMHx who presents with c/o right forearm pain for the past month with no improvement. Strong suspicion for acute muscle strain in forearm given pain was elicited in right forearm with wrist extension and flexion. No suspicion for DVT. Referred patient to PT and advised NSAIDs for short-term pain management. Christopher was seen today for pain. Diagnoses and all orders for this visit: Right arm pain - ELBOW 2 VIEWS - AMB CONS/FOLLOW UP PHYSICAL THERAPY Muscle strain of forearm, right, initial encounter Return if symptoms worsen or fail to improve, for right arm pain. documented in this encounter Plan of Treatment Scheduled Orders Name Type Priority Associated Diagnoses Order S chedule ELBOW 2 VIEWS Imaging Routine Right arm pain Ordered: 03/2019 Scheduled Referrals Name Type Priority Associated Diagnoses Order S chedule AMB CONS/FOLLOW UP Outpatient Referral Routine Right arm pain Ordered: PHYSICAL THERAPY 06/19/2019 documented as of this encounter Goals Goal Patient Goal Associated Recent Patient-Stated? Author Type Problems Progress LDL < 100 Result Component Elevated 195 No Greenoug h, cholesterol (09/12/2020 Lorenza Vazquez 12:04 EST) documented as of this encounter Visit Diagnoses Diagnosis Right arm pain - Primary Pain in limb Muscle strain of forearm, right, initial encounter documented in this encounter Care Teams Collaborating Supervising Physician Relationship Specialty Start Date End Date iMnda Chaparro MD PCP - General 02/19/[address] [place] [phone] documented as of this encounter
--- OUTSIDE RECORDS SUMMARY | 2022-04-01 18:21 | XMS_ITS | Encounter Summary ---
:1970 Author Organization [facility] Address [address] [place] [address] Care Team Providers Name Role Phone Mandeep Aranda MD Primary Care Provider Reason for Visit Reason Onset Date Comments Medications Refill 04/28/2013 Encounter Details Date Type Department Care Team Description 04/28/2013 Refill [facility] Adult Mandeep King MD Medications Refill Primary Care - [address] [phone] (Wo rk) Social History Tobacco Use Types Packs/Day Years Used Date Never Smoker Smokeless Tobacco: Never Used Alcohol Use Standard Drinks/Week Comments No 0 (1 standard drink = 0.6 oz pure alcoho l) Sex Assigned at Date Recorded Not on file documented as of this encounter Ordered Prescriptions Prescription Sig Dispensed Refills Start Date End Date fluticasone (FLONASE) 50 Instill 1 [place] into 1 Bottle 1 0 04/28/2013 02/19/2014 mcg/actuation nasal spray both nostrils daily. documented in this encounter Miscellaneous Notes Telephone Encounter - Beulah Lauren - 04/28/2013 1032 EDT Medication(s) Requested: Fluticasone Pharmacy: [facility] Last Refill Date: 06-25-2012 Last Visit Date: 10-16-12 Next Visit Date: Visit date not found Is patient out of medication? Yes Beulah Lauren 04/28/2013 10:32 documented in this encounter Plan of Treatment Not on filedocumented as of this encounter Visit Diagnoses Not on filedocumented in this encounter Discontinued Medications Medication Sig Discontinue Reason Start Date End Date fluticasone (FLONASE) 50 Instill 1 [place] into Reorder 06/25/20 12 04/28/2013 mcg/actuation nasal both nostrils daily. spray NEEDS OFFICE VISIT documented as of this encounter Care Teams Test Operator Relationship Specialty Start Date End Date Mandeep Aranda MD PCP - General 05/02/10 02/18/[address] [place] [phone] documented as of this encounter
--- OUTSIDE RECORDS SUMMARY | 2022-04-01 18:21 | XMS_ITS | Clinical Summary ---
:[address] [facility] Address [address] [place] [address] Care Team Providers Name Role Phone Minda Chaparro MD Primary Care Provider [phone] Allergies No known active allergies Medications Medication Sig Dispensed Refills Start Date End Date Status loratadine (CLARITIN) Take 10 mg by 0 Active 10 mg tablet mouth daily. fluticasone (FLONASE) Instill 1 [place] 1 Bottle 1 06/02/2014 Active 50 mcg/actuation nasal into both nostrils spray daily. Active Problems Problem Noted Date Allergic rhinitis 03/13/2010 Elevated cholesterol 08/09/1999 Immunizations Name Administration Dates Next Due Covid-19 mRNA Vaccine ([employer] COVID-19) PF 0.3 ml IM 021, 12/12/2020 (12 yrs+) Historical Influenza Vaccine, Unspecified 05/12/2021 Influenza Vaccine =>3yo Split IM 05/12/2015 PPD Skin Test Placement 07/12/1999 Tdap (BOOSTRIX) Vaccine =>7YO IM 10/16/2012, 07/12/1999 Surgical History Surgery Date Site/Laterality Comments VASECTOMY 06.12.08 Family History Relation Name Status Comments Brother Alive Daughter Alive Daughter Alive Father Alive Mother Alive Sister Alive half-sister Son Alive Social History Tobacco Use Types Packs/Day Years Used Date Never Smoker Smokeless Tobacco: Never Used Tobacco Cessation: Counseling Given: No Alcohol Use Standard Drinks/Week Comments No 0 (1 standard drink = 0.6 oz pure alcoho l) Sex Assigned at Date Recorded Not on file Last Filed Vital Signs Vital Sign Reading Time Taken Comments Blood Pressure 122/74 10/11/2021 1550 EST Pulse 72 10/11/2021 1550 EST regular Temperature 36.6 ??C (97.8 ??F) 10/11/2021 1550 EST Respiratory Rate 16 10/11/2021 1550 EST Oxygen Saturation 98% 09/12/2020 1555 EST Inhaled Oxygen Concentration - - Weight 100.7 kg (222 lb) 10/11/2021 1550 EST Height 177.8 cm (5' 10) 09/12/2020 1151 EST Body Mass Index 31.85 09/12/2020 1151 EST Plan of Treatment Health Maintenance Due Date Last Done Comments Hepatitis C Screen 1970 Social Determinants Of Health 1970 (SDOH) Advance Directive 1988 Barium Enema (Colon Cancer 2015 Screening) Colonoscopy (Colon Cancer 2015 Screening) Colorectal Cancer Screening 2015 Fecal Blood Test (Colon Cancer 2015 Screening) Fecal DNA (Colon Cancer Screening) 2015 Sigmoidoscopy (Colon Cancer 2015 Screening) Behavioral Health Screen 10/12/2016 10/13/2015, 06/02/2014 Preventive Care Visit 10/12/2017 10/13/2015, 06/02/2014, 10/16/2012 Shingles Immunization (1 of 2) 2020 COVID-19 Vaccine (3 - Booster for 06/04/2021 01/02/2021, Pfizer series) Influenza Immunization (Adult) 05/12/2022 05/12/2021, 05/12 (#1) Tetanus (Adult) Immunization 10/16/2022 10/16/2012, 999 Lipid Profile Screening 09/12/2025 09/12/2020, 10/11/2015, (Cholesterol) 07/24/2012, Additional history exists Pertussis (Adult) Immunization Completed 10/16/2012, 07/12 HIV Screening Completed 10/11/2015 Goals Goal Patient Goal Associated Recent Patient-Stated? Author Type Problems Progress LDL < 100 Result Component Elevated 195 No Greenoug h, cholesterol (09/12/2020 Lorenza Vazquez 12:04 EST) Insurance Payer Benefit Plan Subscriber ID Effective Phone Address Typ e / Group Dates [facility] [id number] 2021-Prese [phone] [address] Employee [facility] nt [id number] Self-Insured EMPLOYEE [facility] [phone] (Work) Taj Arambulao Personal/Famil Self 1970 [address]Home) [place] [phone] [place], [place] [address] (Work) RalfGreyson Personal/Famil Self 1970 [address] (Home) [place] [phone] [place], [place] [address] (Work) Taj Arambulao Personal/Famil Self 1970 [address] (Home) [place] [phone] [place], [place] [address] (Work) Taj Arambulao Personal/Famil Self 1970 [address] (Home) [place] [phone] [place], [place] [address] (Work) Taj Arambulao Personal/Famil Self 1970 [address] (Home) [place] [phone] [place], [place] [address] (Work) RalfGreyson Personal/Famil Self 1970 [address] (Home) [place] [phone] [place], [place] [address] (Work) RalfGreyson Personal/Famil Self 1970 [address] (Home) [place] [phone] [place], [place] [address] (Work) Advance Directives For more information, please contact: [phone] Documents on File Type Date Recorded Patient Chamber Walker Explanati on Advance Directives and Living Will Care Teams Production Helper Relationship Specialty Start Date End Date Minda Chaparro MD PCP - General 02/19/[address] [place] [phone]
--- OUTSIDE RECORDS SUMMARY | 2022-04-01 18:21 | XMS_ITS | Encounter Summary ---
:1970 Author Organization [facility] Address [address] [place] [address] Care Team Providers Name Role Phone Minda Chaparro MD Primary Care Provider [phone] Encounter Details Date Type Department Care Team Description 10/11/2015 Phlebotomy Only [facility] [employer] Tv Technician Installer, Eric mclean [facility] Outpatient preventive health [address] [facility] examination (Primary [place], [place]) [id number] Social History Tobacco Use Types Packs/Day Years Used Date Never Smoker Smokeless Tobacco: Never Used Alcohol Use Standard Drinks/Week Comments No 0 (1 standard drink = 0.6 oz pure alcoho l) Sex Assigned at Date Recorded Not on file documented as of this encounter Functional Status Functional Status Response Date of Assessment Because of a physical, mental, or emotional condition, No 08/02/2015 does this person have difficulty doing errands alone such as visiting a doctor's office or shopping? Cognitive Status Response Date of Assessment Because of a physical, mental, or emotional condition, No 08/02/2015 does this person have serious difficulty concentrating, remembering, or making decisions? documented as of this encounter Plan of Treatment Not on filedocumented as of this encounter Goals Goal Patient Goal Associated Recent Patient-Stated? Author Type Problems Progress LDL < 100 Result Component Elevated 195 No [place], cholesterol (09/12/2020 Lorenza Vazquez 12:04 EST) documented as of this encounter Procedures Procedure Name Priority Date/Time Associated Comments Diagnosis HIV 1/2 ANTIGEN AND Routine 10/11/2015 12:05 Encounter for Res ults for this ANTIBODY, 4TH EST preventive health procedure are in GENERATION examination the results section. LIPID PROFILE Routine 10/11/2015 12:05 Encounter for Results f or this (INCLUDES CHOLESTEROL, EST preventive health procedure are in TRIGLYCERIDES, HDL, examination the resu lts LDL) section. COMPREHENSIVE Routine 10/11/2015 12:05 Encounter for Results f or this METABOLIC PANEL (CMP) EST preventive health p rocedure are in examination the results section. documented in this encounter Results (ABNORMAL) COMPREHENSIVE METABOLIC PANEL (CMP) (10/11/2015 12:05 EST) Potassium 4.8 3.5 - 5.0 [facility] mEq/L [facility] Sodium 140 136 - 145 [facility] mEq/L [facility] Chloride 100 96 - 110 [facility] mEq/L [facility] CO2 30 24 - 32 mEq/L [facility] Total Alkaline 61 38 - 126 U/L [facility] Phosphatase [facility] Bilirubin, Total 0.5 <1.4 mg/dl [facility] AST 22 15 - 46 U/L [facility] ALT 36 21 - 72 U/L [facility] Albumin 4.0 3.4 - 4.9 [facility] g/dl [facility] Total Protein 6.8 6.3 - 8.2 [facility] g/dl [facility] Creatinine 1.04 0.66 - 1.25 [facility] mg/dl [facility] GFR, Calculated 86 >60 [facility] Comment: ml/min/1.73m2 [facility] eGFR calculated using CKD-EPI equation for SERVICES non Americans. Multiply eGFR by 1.16 for Americans. BUN 13 10 - 26 mg/dl [facility] Calcium 9.4 8.5 - 10.5 [facility] mg/dl [facility] Calculated Calcium 9.8 8.5 - 10.5 [facility] mg/dl [facility] Glucose, Serum 64 (L) 70 - 100 [facility] mg/dl [facility] Fasting? No [facility] Specimen Blood specimen (specimen) - Blood Performing Organization Address City/State/ZIP Code Phon e Number [facility] [address] [place] [address] SERVICES HIV 1/2 ANTIBODY (10/11/2015 12:05 EST) HIV 1/2 Antibody Negative [facility] Comment: [facility] If acute HIV-1 infection is suspected in a SERVICES high risk patient, submit plasma specimen for HIV-1 RNA quantification test. Reference Range: ??Negative Assayed utilizing Recorded Future chemiluminescent technology. Specimen Blood specimen (specimen) - Blood Performing Organization Address [facility] e Number [facility] [address] [place] [address] SERVICES LIPID PROFILE (INCLUDES CHOLESTEROL, TRIGLYCERIDES, HDL, LDL) (10/11/2015 12:05 EST) Cholesterol 218 mg/dl [facility] Comment: LABORATORY Desirable:<200 SERVICES Borderline High:200-239 High:>qg=361 Triglycerides 83 mg/dl [facility] Comment: LABORATORY Normal:<150 SERVICES Borderline High:150-199 High:200-499 Very High:>lm=047 HDL 46 mg/dl [facility] Comment: LABORATORY Low:<40 SERVICES Normal:40-60 Desirable: >60 LDL, Calculated 155 mg/dl [facility] Comment: LABORATORY Optimal:<100 SERVICES Near Optimal:100-129 Borderline High:130-159 High:160-189 Very High:>fc=895 Chol/HDL Ratio 4.7 [facility] SERVICES Fasting? No [facility] SERVICES Non HDL Cholesterol 172 mg/dl [facility] Comment: LABORATORY Desirable:<130 SERVICES Borderline:130-159 High: 160-189 Very High: >mq=876 Specimen Blood specimen (specimen) - Blood Performing Organization Address [facility] e Number [facility] [address] [place] [address] SERVICES documented in this encounter Visit Diagnoses Diagnosis Encounter for preventive health examinat ion - Primary Routine general medical examination at a health care facility documented in this encounter Care Teams Sales Project Coordinator Relationship Specialty Start Date End Date Minda Chaparro MD PCP - General 02/19/[address] [place] [phone] documented as of this encounter
--- OUTSIDE RECORDS SUMMARY | 2022-04-01 18:21 | XMS_ITS | Encounter Summary ---
:1970 Author Organization [facility] Address [address] [place] [address] Care Team Providers Name Role Phone Minda Chaparro MD Primary Care Provider [phone] Reason for Visit Reason Onset Date Comments Medications Refill 02/19/2014 Encounter Details Date Type Department Care Team Description 02/19/2014 Refill [facility] Adult Minda Chaparro ications Refill Primary Care - Elmo Crowell MD [address] [facility] [address] [place], [place] [address] [place] [address] [phone] (Wo rk) Social History Tobacco Use Types Packs/Day Years Used Date Never Smoker Smokeless Tobacco: Never Used Alcohol Use Standard Drinks/Week Comments No 0 (1 standard drink = 0.6 oz pure alcoho l) Sex Assigned at Date Recorded Not on file documented as of this encounter Ordered Prescriptions Prescription Sig Dispensed Refills Start Date End Date fluticasone (FLONASE) 50 Instill 1 [place] into 1 Bottle 1 0 02/19/2014 06/02/2014 mcg/actuation nasal spray both nostrils daily. documented in this encounter Miscellaneous Notes Telephone Encounter - Bradley, Asia Florecita - 02/19/2014 1104 EDT Medication(s) Requested: Flonase-would like today as his allergies are incredibly bad. Pharmacy: [facility] Last Refill Date: 04/28/13 Last Visit Date: 10/16/12 Next Visit Date: 06/02/2014 Is patient out of medication? yes Asia Huerta 02/19/2014 11:04 documented in this encounter Plan of Treatment Not on filedocumented as of this encounter Visit Diagnoses Not on filedocumented in this encounter Discontinued Medications Medication Sig Discontinue Reason Start Date End Date fluticasone (FLONASE) 50 Instill 1 [place] into Reorder 04/28/20 13 02/19/2014 mcg/actuation nasal both nostrils daily. spray documented as of this encounter Care Teams Manager Provider Relations Relationship Specialty Start Date End Date Minda Chaparro MD PCP - General 02/19/[address] [place] [phone] documented as of this encounter
--- OUTSIDE RECORDS SUMMARY | 2022-04-01 18:21 | XMS_ITS | Encounter Summary ---
:1970 Author Organization [facility] Address [address] [place] [address] Care Team Providers Name Role Phone Minda Chaparro MD Primary Care Provider [phone] Reason for Referral PT/OT/ST (Routine) - Closed Specialty Diagnoses / Procedures Referred By Contact Refer red To Contact Rehab Therapies Diagnoses Benign positional vertigo, unspecified laterality Danika Evangelista FNP [facility] Rehab Therapy [address] [facility] [employer] [address] [address] Phone: Fax: Referral ID Status Reason Start Date Expiration Date Visits V isits Requested Authorized [id number] Closed Specialty 09/14/2016 1 1 Services Required Question Answer Reason for Request: benign positional vertigo - needs instruction in exercises to resolve. Comments Any location that can do treatment for B PV is fine. Reason for Visit Reason Comments Dizziness few weeks, getting worse Tinnitus Encounter Details Date Type Department Care Team Description 09/14/2016 Office Visit [facility] Bernice Evangelista po sitional Adult Primary Care - SHAHID Garnica vertigo, unspecified [place] [address] laterality (Primary [address] [place], [place] Dx) [place] [phone] Social History Tobacco Use Types Packs/Day Years Used Date Never Smoker Smokeless Tobacco: Never Used Alcohol Use Standard Drinks/Week Comments No 0 (1 standard drink = 0.6 oz pure alcoho l) Sex Assigned at Date Recorded Not on file documented as of this encounter Last Filed Vital Signs Vital Sign Reading Time Taken Comments Blood Pressure 118/80 09/14/2016899 EST Pulse 66 09/14/2016 09 EST Temperature 37 ??C (98.6 ??F) 09/14/2016 09 EST Respiratory Rate 20 09/14/2016 09 EST Oxygen Saturation - - Inhaled Oxygen Concentration - - Weight 102.1 kg (225 lb) 09/14/2016899 EST shoes Height 179.1 cm (5' 10.5) 09/14/2016899 EST Body Mass Index 31.83 09/14/2016 09 EST documented in this encounter Functional Status [...] documented as of this encounter Progress Notes Danika Evangelista NP - 09/14/2016 0875 EST CHIEF COMPLAINT: Dizziness (few weeks, getting worse) and Tinnitus Current Outpatient Prescriptions Medication Sig ??? fluticasone (FLONASE) 50 mcg/actuation nasal spray Instill 1 [place] into both nostrils daily. ??? loratadine (CLARITIN) 10 mg tablet Take 10 mg by mouth daily. No Known Allergies SUBJECTIVE: The patient is a 46 y.o. male here for Dizziness (few weeks, getting worse) and Tinnitus Amrit has been having episodic vertigo for several weeks. 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 He looked up exercises for BPV on the internet but has only been successful in reproducing his symptoms, not in resolving them. Review of Systems: Pertinent items are noted in Subjective/HPI OBJECTIVE: Visit Vitals ??? BP 118/80 (BP Cuff Location: Left arm, Patient Position: Sitting, BP Cuff Sizes: Adult, large) ??? Pulse 66 ??? Temp 37 ??C (98.6 ??F) (Tympanic) ??? Resp 20 ??? Ht 179.1 cm (70.5) ??? Wt (!) 102.1 kg (225 lb) Comment: shoes ??? BMI 31.83 kg/m2 General appearance: alert, cooperative Skin: Skin color, temperature, turgor normal. No rashes or lesions Head: Normocephalic, without obvious abnormality, atraumatic Eyes: conjunctivae/corneas clear. PERRL, EOM's intact. Fundi benign Ears: normal TM's and external ear canals AU PROBLEM: episodes of vertigo Assessment: BPV Plan: Refer for PT treatment and instruction in home treatment. Endy was seen today for dizziness and tinnitus. Diagnoses and all orders for this visit: Benign positional vertigo, unspecified laterality - Amb Consult/Follow Up Physical Therapy Patient Education Provided: on the various medical issues listed above Method: Verbal, with specific instructions documented on the after-visit summary. Taught to: Patient Barriers: None. The patient's understanding of the current medical regimen was reviewed at today's visit. The patient demonstrates adequate understanding. The patient's consistency in taking the medications as prescribed was also reviewed at today's visit. The patient reports taking the medications asprescribed. If medicines are not being taken as prescribed, the reasons for this change are documented above. Outcomes: verbalized understanding Danika Evangelista NP 09/14/2016 9:20 Patient Education Provided: There are no on file for this visit. Other Background Data: Patient Active Problem List Diagnosis Date Noted ??? Allergic rhinitis 03/13/2010 ??? Elevated cholesterol 08/09/1999 No past medical history on file. Past Surgical History: Procedure Laterality Date ??? VASECTOMY 06.12.08 No family history on file. Social History Substance Use Topics ??? Smoking status: Never Smoker ??? Smokeless tobacco: Never Used ??? Alcohol use No documented in this encounter Plan of Treatment Scheduled Referrals Name Type Priority Associated Diagnoses Order S chedule AMB CONS/FOLLOW UP Outpatient Referral Routine Benign Position al Ordered: PHYSICAL THERAPY Vertigo, Unspecified 10/2016 Laterality documented as of this encounter Goals Goal Patient Goal Associated Recent Patient-Stated? Author Type Problems Progress LDL < 100 Result Component Elevated 195 No [place] h, cholesterol (09/12/2020 Lorenza Vazquez 12:04 EST) documented as of this encounter Visit Diagnoses Diagnosis Benign positional vertigo, unspecified l aterality - Primary documented in this encounter Care Teams Admitting Manager Relationship Specialty Start Date End Date Minda Chaparro MD PCP - General 02/19/[address] [place] [phone] documented as of this encounter
--- OUTSIDE RECORDS SUMMARY | 2022-04-01 18:21 | XMS_ITS | Encounter Summary ---
:1970 Author Organization [facility] Address [address] [place] [address] Care Team Providers Name Role Phone Minda Chaparro MD Primary Care Provider [phone] Reason for Visit Reason Comments Ear Problem left ear Encounter Details Date Type Department Care Team Description 08/02/[address] [facility] Tonja, Hearing l oss due to Adult Primary Care - Danika, SHAHID P cerumen impaction, [place] [address] left (Primary Dx) [address] [place] [address] [phone] Social History Tobacco Use Types Packs/Day Years Used Date Never Smoker Smokeless Tobacco: Never Used Alcohol Use Standard Drinks/Week Comments No 0 (1 standard drink = 0.6 oz pure alcoho l) Sex Assigned at Date Recorded Not on file documented as of this encounter Last Filed Vital Signs Vital Sign Reading Time Taken Comments Blood Pressure 118/76 08/02/2015 1420 EST Pulse 76 08/02/2015 1420 EST Temperature - - Respiratory Rate 16 08/02/2015 1420 EST Oxygen Saturation - - Inhaled Oxygen Concentration - - Weight 100.2 kg (221 lb) 08/02/2015 1420 EST Height 177 cm (5' 9.69) 08/02/2015 1420 EST Body Mass Index 32 08/02/2015 1420 EST documented in this encounter Functional Status [...] encounter Progress Notes Danika Evangelista NP - 08/02/2015 1429 EST CHIEF COMPLAINT: Ear Problem Current Outpatient Prescriptions Medication Sig ??? fluticasone (FLONASE) 50 mcg/actuation nasal spray Instill 1 [place] into both nostrils daily. ??? loratadine (CLARITIN) 10 mg tablet Take 10 mg by mouth daily. No Known Allergies SUBJECTIVE: The patient is a 45 y.o. male here for Ear Problem feels like he's had 50% hearing loss on the left side. Qtip sometimes makes it worse or makes it better. No recent illness. Denies nasal congestion or fever. Review of Systems: Pertinent items are noted in Subjective/HPI OBJECTIVE: BP 118/76 mmHg Pulse 76 Resp 16 Ht 177 cm (69.69) Wt 100.245 kg (221 lb) BMI 32.00 kg/m2 General appearance: alert, cooperative, no distress Ears: right ear normal. Left ear with cerumen impaction that is removed with irrigation and curettage. Patient reports immediate improvement in hearing and comfort. PROBLEM: hearing loss Assessment: Cerumen impaction Plan: Resolved with removal of cerumen. No further treatment needed unless there is recurrence. Endy was seen today for ear problem. Diagnoses and all orders for this visit: Hearing loss due to cerumen impaction, left Patient Education Provided: on the various medical [...] above. Outcomes: verbalized understanding Danika Evangelista NP 08/02/2015 14:29 Patient Education Provided: There are no on file for this visit. Other Background Data: Patient Active Problem List Diagnosis Date Noted ??? Allergic rhinitis 03/13/2010 ??? Elevated cholesterol 08/09/1999 No past medical history on file. Past Surgical History Procedure Laterality Date ??? Vasectomy 06.12.08 No family history on file. History Substance Use Topics ??? Smoking status: Never Smoker ??? Smokeless tobacco: Never Used ??? Alcohol Use: No documented in this encounter Plan of Treatment Not on filedocumented as of this encounter Goals Goal Patient Goal Associated Recent Patient-Stated? Author Type Problems Progress LDL < 100 Result Component Elevated 195 No Greenoug h, cholesterol (09/12/2020 Lorenza Vazquez 12:04 EST) documented as of this encounter Visit Diagnoses Diagnosis Hearing loss due to cerumen impaction, l eft - Primary documented in this encounter Care Teams Manager Animal Relationship Specialty Start Date End Date Minda Chaparro MD PCP - General 02/19/[address] [place] [phone] documented as of this encounter
--- OUTSIDE RECORDS SUMMARY | 2022-04-01 18:21 | XMS_ITS | Encounter Summary ---
:1970 Author Organization [facility] Address [address] [place] [address] Care Team Providers Name Role Phone Minda Chaparro MD Primary Care Provider [phone] Encounter Details Date Type Department Care Team Description 08/17/2021 Travel Social History Tobacco Use Types Packs/Day Years [...] Diagnoses Not on filedocumented in this encounter Additional Health Concerns Infection Onset Date Last Indicated Resolved Time R/O COVID-19 08/17/2021 08/17/2021 08/19/2021 13:54 EST documented as of this encounter Care Teams Prototype Sewer Relationship Specialty Start Date End Date Minda Chaparro MD PCP - General 02/19/[address] [place] [phone] documented as of this encounter
--- OUTSIDE RECORDS SUMMARY | 2022-04-01 18:21 | XMS_ITS | Encounter Summary ---
:1970 Author Organization [facility] Address [address] [place] [address] Care Team Providers Name Role Phone Minda Chaparro MD Primary Care Provider [phone] Reason for Visit Reason Onset Date Comments Results 08/18/2021 Encounter Details Date Type Department Care Team Description 08/18/2021 Telephone [facility] Adult Maranda Posey RN [place] [address] Social History Tobacco Use Types Packs/Day Years [...] this encounter Miscellaneous Notes Telephone Encounter - Ariana Moreau RN - 08/18/2021 1521 EST Outgoing call to patient. He is aware of covid positive results. He states, I have no symptoms. Denies any fever. Pt states his symptoms have resolved that he had earlier in the week. Pt states symptoms started Luis Manuel- he is aware that he needs to isolate until day 5 and if asymptomatic he can break quarantine and wear a mask until day 10. Pt verbalized understanding without any barriers to learning noted. ARIANA MOREAU RN 08/18/2021 15:23 elephone Encounter - Maranda Garza RN - 08/18/2021 1433 EST covid positive results. MARANDA GARZA RN documented in this encounter Plan of Treatment [...] R/O COVID-19 08/17/2021 08/17/2021 08/19/2021 13:54 EST COVID-19 08/17/2021 08/17/2021 09/06/2021 22:15 EST documented as of this encounter Care Teams Clinical Allergist Relationship Specialty Start Date End Date Minda Chaparro MD PCP - General 02/19/[address] [place] [phone] documented as of this encounter
--- OUTSIDE RECORDS SUMMARY | 2022-04-01 18:21 | XMS_ITS | Encounter Summary ---
:1970 Author Organization [facility] Address [address] [place] [address] Care Team Providers Name Role Phone Minda Chaparro MD Primary Care Provider [phone] Encounter Details Date Type Department Care Team Description 09/12/2020 Travel Social History Tobacco Use Types Packs/Day [...] 100 Result Component Elevated 195 No Galo penn cholesterol (09/12/2020 Lorenzacaesar Vazquez 12:04 EST) documented as of this encounter Visit Diagnoses Not on filedocumented in this encounter Care Teams Digester Operator Relationship Specialty Start Date End Date Minda Chaparro MD PCP - General 02/19/[address] [place] [phone] documented as of this encounter
--- OUTSIDE RECORDS SUMMARY | 2022-04-01 18:21 | XMS_ITS | Encounter Summary ---
:1970 Author Organization [facility] Address [address] [place] [address] Care Team Providers Name Role Phone Mandeep Aranda MD Primary Care Provider Reason for Visit Reason Comments Annual Exam E Encounter Details Date Type Department Care Team Description 10/16/2012 Office Visit [facility] Mandeep Ar[facility] (Primary Dx); Adult Primary Care - [place] Elevated cholesterol; [place] [address] [facility] Allergic rhinitis; [address] [facility] [address] [address] [place] [address] [place] [phone] Social History Tobacco Use Types Packs/Day Years Used Date Never Smoker Smokeless Tobacco: Never Used Alcohol Use Standard Drinks/Week Comments No 0 (1 standard drink = 0.6 oz pure alcoho l) Sex Assigned at Date Recorded Not on file documented as of this encounter Last Filed Vital Signs Vital Sign Reading Time Taken Comments Blood Pressure 122/74 10/16/2012 1250 EST Pulse 68 10/16/2012 1250 EST Temperature 36.9 ??C (98.5 ??F) 10/16/2012 1250 EST Respiratory Rate 14 10/16/2012 1250 EST Oxygen Saturation - - Inhaled Oxygen Concentration - - Weight 99.3 kg (219 lb) 10/16/2012 1250 EST Height 177.8 cm (5' 10) 10/16/2012 1250 EST Body Mass Index 31.42 10/16/2012 1250 EST documented in this encounter Patient Instructions Patient InstructionsMandeep Aranda MD - 10/16/2012 13:00 EST Results for ENDY ARAMBULA ( ) as of 10/16/2012 12:59 Ref. Range 07/24/2012 10:04 Cholesterol Less than 200 227 Triglycerides Latest Range: 35-160 mg/dl 83 HDL - good cholesterol More than 40 41 LDL - bad cholesterol Less than 130 169 Chol/HDL Ratio Less than 4.0 5.5 Health care goal that we discussed today Cholesterol less than 200 LDL - cholesterol less than 130 The was you have chosen to do this: Work on diet and weight loss Decreasing red meats, dairy fats and fast food or deep fried food. We agreed to follow up on these goals in 12 months (you can have interim blood tests done sooner if you want some feedback). documented in this encounter Progress Notes Mandeep Aranda MD - 10/16/2012 1258 EST Subjective: Patient ID: Endy Arambula is an 42 y.o. male. Encounter Diagnoses Name Primary? Preventative health care Yes ??? Elevated cholesterol ??? Allergic rhinitis ??? Need for Tdap vaccination HPI Feeling well and here just for preventive follow up. No complaints today at all. Continues to use Alegra and Flonase as needed for allergies. There are times of the year when he needs to use both and other times when he does not need anything. Denies any history of chest pains or shortness of breath. Patient Active Problem List Diagnoses ??? Allergic rhinitis ??? Elevated cholesterol No past medical history on file. Current Outpatient Prescriptions on File Prior to Visit Medication Sig Dispense Refill ??? fluticasone (FLONASE) 50 mcg/actuation nasal spray Instill 1 [place] into both nostrils daily. NEEDS OFFICE VISIT 1 Bottle 0 ??? fexofenadine (VERONICA) 180 mg tablet Take 1 Tab by mouth daily. 30 Tab 3 No Known Allergies Social History Substance Use Topics ??? Smoking status: Never Smoker ??? Smokeless tobacco: Never Used ??? Alcohol Use: No Family history Parents alive and in good health. Brother and step sister also healthy. ROS - See HPI No hx of fatigue, headache, vision or hearing loss, abdominal pain, change in bowel or urinary habits, joint pain or skin lesions. Notes an injury to the R great toe nail which has been very slow to recover. Objective: BP 122/74 Pulse 68 Temp(Src) 36.9 ??C (98.5 ??F) (Tympanic) Resp 14 Ht 177.8 cm (70) Wt 99.338 kg (219 lb) BMI 31.42 kg/m2 Physical Exam Appears well. Overweight. Eyes, ears and throat are normal. Neck - no lymph or thyroid enlargement, no carotid bruits. Lungs are clear Heart is regular. No gallop or murmur. Abdomen is non-tender, no masses or organ enlargement. - no testicular masses or tenderness. Ext neg for significant edema Neuro - cranial nerves, strength and reflexes are intact. Phlebotomy Only on 07/24/2012 Component Date Value Range Status ??? Potassium 07/24/2012 4.4 3.5 - 5.0 mEq/L Final ??? Sodium 07/24/2012 140 136 - 145 mEq/L Final ??? Chloride 07/24/2012 102 96 - 110 mEq/L Final ??? CO2 07/24/2012 30 24 - 32 mEq/L Final ??? Total Alkaline Phosphatase 07/24/2012 76 38 - 126 U/L Final ??? Bilirubin, Total 07/24/2012 0.8 0.2 - 1.3 mg/dl Final ??? AST 07/24/2012 24 15 - 46 U/L Final ??? ALT 07/24/2012 36 21 - 72 U/L Final ??? Albumin 07/24/2012 4.3 3.4 - 4.9 g/dl Final ??? Total Protein 07/24/2012 7.3 6.5 - 8.3 g/dl Final ??? Creatinine 07/24/2012 0.90 0.66 - 1.25 mg/dl Final ? ? GFR, Calculated 07/24/2012 >60 >60 ml/min/1.73m2 Final ??? BUN 07/24/2012 14 10 - 26 mg/dl Final ??? Calcium 07/24/2012 9.5 8.5 - 10.5 mg/dl Final ??? Calculated Calcium 07/24/2012 9.6 8.5 - 10.5 mg/dl Final ??? Glucose, Serum 07/24/2012 87 70 - 100 mg/dl Final ??? Fasting? 07/24/2012 YES Final ??? Cholesterol 07/24/2012 227 Final ??? Triglycerides 07/24/2012 83 Final ??? HDL 07/24/2012 41 Final ??? LDL, Calculated 07/24/2012 169 Final ??? Chol/HDL Ratio 07/24/2012 5.5 Final ??? Fasting? 07/24/2012 YES Final Assessment: In general, Christopher, you appear healthy. Your cholesterol is moderately elevated. This could be related to weight and/or diet. Allergies seem well controlled with Veronica and Flonase as needed. Plan: Update Tdap Continue present therapy for allergies. We discussed cholesterol and he decided to try to lower it by diet and weight loss rather than medication. He was given verbal and written instruction and help from a hi lift operator was offered if he wants it. Preventive recommendations: Regular physical activity Wearing a seat belt whenever in a vehicle. Your next Tetanus shot should be in 10 years You should have an eye exam to look for glaucoma every 2 years. At age 50 you should begin having screening for bowel and prostate cancer. documented in this encounter Plan of Treatment Not on filedocumented as of this encounter Visit Diagnoses Diagnosis Preventative health care - Primary Routine general medical examination at a health care facility Elevated cholesterol Pure hypercholesterolemia Allergic rhinitis Allergic rhinitis, cause unspecified Need for Tdap vaccination Need for prophylactic vaccination with c ombined tmcdfzwkhe-[id number] (DTP) vaccine documented in this encounter Orders Immunization/Injection Count Last Ordered Date First O rdered Date TDAP VACCINE =>7YO IM 1 10/16/2012 documented in this encounter Care Teams Mixed Signal Design Engineer Relationship Specialty Start Date End Date Mandeep Aranda MD PCP - General 05/02/10 02/18/[address] [place] [phone] documented as of this encounter
--- OUTSIDE RECORDS SUMMARY | 2022-04-01 18:21 | XMS_ITS | Encounter Summary ---
:1970 Author Organization [facility] Address [address] [place] [address] Care Team Providers Name Role Phone Minda Chaparro MD Primary Care Provider [phone] Encounter Details Date Type Department Care Team Description 12/12/2020 Immunization [facility] [address] [place], [place] [address] Social History Tobacco Use Types Packs/Day Years [...] 100 Result Component Elevated 195 No Galo h, cholesterol (09/12/2020 Lorenza Vazquez 12:04 EST) documented as of this encounter Visit Diagnoses Not on filedocumented in this encounter Orders Immunization/Injection Count Last Ordered Date First O rdered Date COVID-19 MRNA VACCINE (PFIZER COVID-19) PF 1 12/12 0.3 ML IM (16 YRS+) documented in this encounter Care Teams Search Advertising Strategist Relationship Specialty Start Date End Date Minda Chaparro MD PCP - General 02/19/[address] [place] [phone] documented as of this encounter
--- OUTSIDE RECORDS SUMMARY | 2022-04-01 18:21 | XMS_ITS | Encounter Summary ---
:1970 Author Organization [facility] Address [address] [place] [address] Care Team Providers Name Role Phone Minda Chaparro MD Primary Care Provider [phone] Reason for Visit Reason Comments Annual Exam Encounter Details Date Type Department Care Team Description 10/13/2015 Office Visit [facility] Minda Chaparro Elevated cholesterol (Primary Dx); Adult Primary Care - MD Mervat Encounter for preventive health examinat ion; [place] [address] [facility] Depression screen [address] [place], [place] [address] [place] [address] [phone] Social History Tobacco Use Types Packs/Day Years Used Date Never Smoker Smokeless Tobacco: Never Used Alcohol Use Standard Drinks/Week Comments No 0 (1 standard drink = 0.6 oz pure alcoho l) Sex Assigned at Date Recorded Not on file documented as of this encounter Last Filed Vital Signs Vital Sign Reading Time Taken Comments Blood Pressure 110/70 10/13/2015 1004 EST Pulse 80 10/13/2015 1004 EST Temperature 36.7 ??C (98 ??F) 10/13/2015 1004 EST Respiratory Rate 14 10/13/2015 1004 EST Oxygen Saturation - - Inhaled Oxygen Concentration - - Weight 100.2 kg (221 lb) 10/13/2015 1004 EST Height 179.1 cm (5' 10.5) 10/13/2015 1004 EST Body Mass Index 31.26 10/13/2015 1004 EST documented in this encounter Functional Status [...] documented as of this encounter Progress Notes Minda Chaparro MD - 10/13/2015 1011 EST Subjective: Patient ID: Endy Arambula is an 45 y.o. male. Chief Complaint Patient presents with ??? Annual Exam HPI: Amrit is here for preventive visit. Patient profile: He is and now engaged to be again. He has 3 children from his previous marriage. 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 He has not been exercising regularly. He is on the [email or web address] diet. He has no health concerns today. His fianc??e asked him to checked for sexually transmitted diseasesthat he has no symptoms He has occasional rectal bleeding. His was also discussed at his last physical in May 2014 and the frequency has not changed. He notices blood about twice a month. This is usually after he has beenstraining to have bowel movements and feels constipated. A change in diet usually helps. He makes a point to drink plenty of water. Depression Screen: PHQ-2: Over the past two weeks, how often has the patient been bothered by any of the following problems? Not at all Several days More than 1/2 of the days Nearly every day 0 1 2 3 Little interest or pleasure in doing things: X Feeling down, depressed, or hopeless: X Total point score (cutoff 3): 0 Patient Active Problem List Diagnosis ??? Allergic rhinitis ??? Elevated cholesterol No past medical history on file. Past Surgical History Procedure Laterality Date ??? Vasectomy 06.12.08 Current Outpatient Prescriptions on File Prior to Visit Medication Sig Dispense Refill ??? fluticasone (FLONASE) 50 mcg/actuation nasal spray Instill 1 [place] into both nostrils daily. 1 Bottle 1 ??? loratadine (CLARITIN) 10 mg tablet Take 10 mg by mouth daily. No current facility-administered medications on file prior to visit. No Known Allergies Social History Substance Use Topics ??? Smoking status: Never Smoker ??? Smokeless tobacco: Never Used ??? Alcohol Use: No Family history was reviewed. He has no significant family history and there are no changes. Review of Systems Constitutional: Negative for fever, chills, weight loss, malaise/fatigue and diaphoresis. Eyes: Negative for blurred vision and double vision. Respiratory: Negative for cough and shortness of breath. Cardiovascular: Negative for chest pain and palpitations. Gastrointestinal: Positive for blood in stool. Negative for heartburn, nausea, vomiting, abdominal pain and diarrhea. Genitourinary: Negative for dysuria. Musculoskeletal: Negative for myalgias and joint pain. Skin: Negative for rash. Neurological: Negative for dizziness, tingling and headaches. Endo/Heme/Allergies: Does not bruise/bleed easily. Psychiatric/Behavioral: Negative for depression. Objective: There were no vitals taken for this visit. Physical Exam General: well-developed, well-nourished male HEENT: oral mucosa and pharynx moist and without lesions. Tympanic membranes visualized and with an intact light reflex. Sclerae clear and non-icteric. Neck: no lymphadenopathy or thyromegaly Lungs: clear in all lung peterson Cardiac: regular and without murmur or gallop Axillary: no lymphadenopathy Abdomen: soft, non-tender, no masses. No hepatomegaly or abdominal bruit. : Normal sexual development. He is uncircumcised. There are no penile masses or lesions. Rectal: normal rectal tone. No external hemorrhoids. Internal exam was negative for mass. Extremities: no cyanosis or edema Skin: no rashes Wt Readings from Last 3 Encounters: 10/13/15 100.245 kg (221 lb) 08/02/15 100.245 kg (221 lb) 06/02/14 100.245 kg (221 lb) Results for orders placed or performed in visit on 10/11/15 LIPID PROFILE (INCLUDES CHOLESTEROL, TRIGLYCERIDES, HDL, LDL) Result Value Ref Range Cholesterol 218 mg/dl Triglycerides 83 mg/dl HDL 46 mg/dl LDL, Calculated 155 mg/dl Chol/HDL Ratio 4.7 Fasting? No Non HDL Cholesterol 172 mg/dl HIV 1/2 ANTIBODY Result Value Ref Range HIV 1/2 Antibody Negative COMPREHENSIVE METABOLIC PANEL (CMP) Result Value Ref Range Potassium 4.8 3.5 - 5.0 mEq/L Sodium 140 136 - 145 mEq/L Chloride 100 96 - 110 mEq/L CO2 30 24 - 32 mEq/L Total Alkaline Phosphatase 61 38 - 126 U/L Bilirubin, Total 0.5 <1.4 mg/dl AST 22 15 - 46 U/L ALT 36 21 - 72 U/L Albumin 4.0 3.4 - 4.9 g/dl Total Protein 6.8 6.3 - 8.2 g/dl Creatinine 1.04 0.66 - 1.25 mg/dl GFR, Calculated 86 >60 ml/min/1.73m2 BUN 13 10 - 26 mg/dl Calcium 9.4 8.5 - 10.5 mg/dl Calculated Calcium 9.8 8.5 - 10.5 mg/dl Glucose, Serum 64 (L) 70 - 100 mg/dl Fasting? No Assessment: 45-year-old man who is here for preventive visit. Tdap done in 2012 Increased exercise as below. Problems addressed this visit: 1. Borderline hyperlipidemia: LDL is improved. His 10 year risk of cardiovascular disease at his ageis 3%. His risk will increase with age regardless of his numbers. I emphasized regular exercise, weight loss, and healthy diet for reducing cholesterol and also for improvement in general health. Plan: As above Follow-up in 2 years to recheck cholesterol documented in this encounter Plan of Treatment Not on filedocumented as of this encounter Goals Goal Patient Goal Associated Recent Patient-Stated? Author Type Problems Progress LDL < 100 Result Component Elevated 195 No Greenzeenatg h cholesterol (09/12/2020 Lorenza Vazquez 12:04 EST) documented as of this encounter Visit Diagnoses Diagnosis Elevated cholesterol - Primary Pure hypercholesterolemia Encounter for preventive health examinat ion Routine general medical examination at a health care facility Depression screen Screening for depression documented in this encounter Care Teams English Composition Instructor Relationship Specialty Start Date End Date Minda Chaparro MD PCP - General 02/19/[address] [place] [phone] documented as of this encounter
--- OUTSIDE RECORDS SUMMARY | 2022-04-01 18:21 | XMS_ITS | Encounter Summary ---
:1970 Author Organization [facility] Address [address] [place] [address] Care Team Providers Name Role Phone Mandeep Aranda MD Primary Care Provider Encounter Details Date Type Department Care Team Description 07/24/2012 Hospital Encounter [facility]- Molly Aranda, [facility] [id number] [place] [phone] (Wo rk) Social History Tobacco Use Types Packs/Day Years Used Date Never Smoker Alcohol Use Standard Drinks/Week Comments No 0 (1 standard drink = 0.6 oz pure alcoho l) Sex Assigned at Date Recorded Not on file documented as of this encounter Medications at Time of Discharge Medication Sig Dispensed Refills Start Date End Date fexofenadine (VERONICA) Take 1 Tab by mouth 30 Tab 3 04/1306/02/2014 180 mg tablet daily. fluticasone (FLONASE) 50 Instill 1 [place] into 1 Bottle 0 1 08/25/2011 04/28/2013 mcg/actuation nasal spray both nostrils daily. NEEDS OFFICE VISIT documented as of this encounter Discharge Disposition Disposition Code Departure Means Destination Home or Self Senior Living documented in this encounter Plan of Treatment Not on filedocumented as of this encounter Visit Diagnoses Not on filedocumented in this encounter Care Teams Lock And Dam Repairer Relationship Specialty Start Date End Date Mandeep Aranda MD PCP - General 05/02/10 02/18/[address] [place] [phone] documented as of this encounter
--- OUTSIDE RECORDS SUMMARY | 2022-04-01 18:21 | XMS_ITS | Encounter Summary ---
:[address] [facility] Address [address] [place] [address] Care Team Providers Name Role Phone Minda Chaparro MD Primary Care Provider [phone] Encounter Details Date Type Department Care Team Description 10/11/2015 Hospital Encounter [facility]- Minda Chaparro [facility] MD Mervat [address] [phone] (Wo rk) Social History Tobacco Use Types [...] decisions? documented as of this encounter Discharge Diagnoses Diagnosis Z00.00 Encounter for general adult medic al examination without abnormal findings-Z00.00[ICD-10-CM] documented in this encounter Medications at Time of Discharge Medication Sig Dispensed Refills Start Date End Date fluticasone (FLONASE) 50 Instill [address] [place] into 1 Bottle 1 1 mcg/actuation nasal spray both nostrils daily. loratadine (CLARITIN) 10 Take 10 mg by mouth 0 mg tablet daily. documented as of this encounter Discharge Disposition Disposition Code Departure Means Destination Auto Discharge Home documented in this encounter Plan of Treatment Not on filedocumented as of this encounter Goals Goal Patient Goal Associated Recent Patient-Stated? Author Type Problems Progress LDL < 100 Result Component Elevated 195 No Greenoug h, cholesterol (09/12/2020 Lorenza Vazquez 12:04 EST) documented as of this encounter Visit Diagnoses Not on filedocumented in this encounter Care Teams Environmental Conflict Manager Relationship Specialty Start Date End Date Minda Chaparro MD PCP - General 02/19/[address] [place] [phone] documented as of this encounter
--- OUTSIDE RECORDS SUMMARY | 2022-04-01 18:21 | XMS_ITS | Encounter Summary ---
:1970 Author Organization [facility] Address [address] [place] [address] Care Team Providers Name Role Phone Minda Chaparro MD Primary Care Provider Reason for Visit Reason Onset Date Comments Appointment Related 06/29/2019 Encounter Details Date Type Department Care Team Description 06/29/2019 Telephone [facility] Adult Minda Chaparro Ebonie ointment Related Primary Care - Elmo Crowell MD [address] [facility] [address] [place], [place] [address] [place] [address] [phone] (Wo rk) Social History Tobacco Use [...] Telephone Encounter - Minda Chaparro MD - 06/30/2019 0829 EST I need a diagnosis for the referral Looking through the chart, I see than Nicole saw her for an upper extremity problem so I suspect thisrequest is related to that complaint and I will forward this to her to sign if she thinks it is appropriate. elephone Encounter - Chyna Mckeon - 06/29/2019 1608 EST Reason for Call: Appointment Related Summary/Symptoms: Incoming call from PT 360 They would like additional AT referral for Athletic Training services. Onset and Duration? now Appointment Offered? No Chyna Mckeon 06/29/2019 16:08 documented in this encounter Plan of Treatment Not on filedocumented as of this encounter Goals Goal Patient Goal Associated Recent Patient-Stated? Author Type Problems Progress LDL < 100 Result Component Elevated 195 No Greenzeenatg h, cholesterol (09/12/2020 Lorenzacaesar Vazquez 12:04 EST) documented as of this encounter Visit Diagnoses Not on filedocumented in this encounter Care Teams Desktop Analyst Relationship Specialty Start Date End Date Minda Chaparro MD PCP - General 02/19/[address] [place] [phone] documented as of this encounter
--- OUTSIDE RECORDS SUMMARY | 2022-04-01 18:21 | XMS_ITS | Encounter Summary ---
:1970 Author Organization [facility] Address [address] [place] [address] Care Team Providers Name Role Phone Mandeep Aranda MD Primary Care Provider Reason for Visit Reason Onset Date Comments Appointment Related 09/12/2012 Encounter Details Date Type Department Care Team Description 09/12/2012 Telephone [facility] Adult Mandeep Aranda, Appointment Related Primary Care - Elmo lancaster MD [address] [place] [address] [place] [address] [place], [place] [phone] (Wo rk) Social History Tobacco Use Types Packs/Day Years Used Date Never Smoker Alcohol Use Standard Drinks/Week Comments No 0 (1 standard drink = 0.6 oz pure alcoho l) Sex Assigned at Date Recorded Not on file documented as of this encounter Miscellaneous Notes Telephone Encounter - Lorneza Kingsley I. - 09/12/2012 1130 EST Left message for Endy to return call regarding his [facility] appointment with Dr Aranda on 09.22.12. He has not yet returned his paperwork for this visit. documented in this encounter Plan of Treatment Not on filedocumented as of this encounter Visit Diagnoses Not on filedocumented in this encounter Care Teams Construction Equipment Mechanic Relationship Specialty Start Date End Date Mandeep Aranda MD PCP - General 05/02/10 02/18/[address] [place] [phone] documented as of this encounter
--- OUTSIDE RECORDS SUMMARY | 2022-04-01 18:21 | XMS_ITS | Encounter Summary ---
:1970 Author Organization [facility] Address [address] [place] [address] Care Team Providers Name Role Phone Minda Chaparro MD Primary Care Provider [phone] Reason for Visit Reason Onset Date Comments Appointment Related 05/28/2014 Encounter Details Date Type Department Care Team Description 05/28/2014 Telephone [facility] Adult Minda Chaparro Ebonie ointment Related Primary Care - Elmo Crowell MD [address] [facility] [address] [place] [address] [place], [place] [phone] (Wo rk) Social History Tobacco Use Types Packs/Day Years Used Date Never Smoker Smokeless Tobacco: Never Used Alcohol Use Standard Drinks/Week Comments No 0 (1 standard drink = 0.6 oz pure alcoho l) Sex Assigned at Date Recorded Not on file documented as of this encounter Miscellaneous Notes Telephone Encounter - Lorenza Kingsley I. - 05/28/2014 1353 EDT Left message reminding patient of appointment with fasting labs due prior to OV. Asked to call office with any questions. documented in this encounter Plan of Treatment Not on filedocumented as of this encounter Visit Diagnoses Not on filedocumented in this encounter Care Teams Commercial Or Institutional Cleaner Relationship Specialty Start Date End Date Minda Chaparro MD PCP - General 02/19/[address] [place] [phone] documented as of this encounter
--- OUTSIDE RECORDS SUMMARY | 2022-04-01 18:21 | XMS_ITS | Encounter Summary ---
:1970 Author Organization [facility] Address [address] [place] [address] Care Team Providers Name Role Phone Mandeep Aranda MD Primary Care Provider Reason for Visit Reason Onset Date Comments Medications Refill 06/25/2012 Encounter Details Date Type Department Care Team Description 06/25/2012 Refill [facility] Adult Mandeep King MD Medications Refill Primary Care - [address] [phone] (Wo rk) Social History Tobacco Use Types Packs/Day Years Used Date Never Smoker Alcohol Use Standard Drinks/Week Comments No 0 (1 standard drink = 0.6 oz pure alcoho l) Sex Assigned at Date Recorded Not on file documented as of this encounter Ordered Prescriptions Prescription Sig Dispensed Refills Start Date End Date fluticasone (FLONASE) 50 Instill 1 [place] into 1 Bottle 0 1 08/25/2011 04/28/2013 mcg/actuation nasal spray both nostrils daily. NEEDS OFFICE VISIT documented in this encounter Miscellaneous Notes Telephone Encounter - Asia Huerta - 06/25/2012 134 EST Name of Medication flonase Last Refill Date 01/09/12 Last Visit Date 05/08/10 Phoned patient and scheduled him for Asad's next available-09/22/12 Next Visit Date 09/22/12 Is patient out of medication? yes documented in this encounter Plan of Treatment Not on filedocumented as of this encounter Visit Diagnoses Not on filedocumented in this encounter Discontinued Medications Medication Sig Discontinue Reason Start Date End Date fluticasone (FLONASE) 50 1 [place] by Nasal Reorder 01/09/2012 06/25/2012 mcg/actuation nasal spray route daily. NEEDS OFFICE VISIT documented as of this encounter Care Teams Six Pack Loader Operator Relationship Specialty Start Date End Date Mandeep Aranda MD PCP - General 05/02/10 02/18/[address] [place] [phone] documented as of this encounter
--- OUTSIDE RECORDS SUMMARY | 2022-04-01 18:21 | XMS_ITS | Encounter Summary ---
:1970 Author Organization [facility] Address [address] [place] [address] Care Team Providers Name Role Phone Minda Chaparro MD Primary Care Provider [phone] Reason for Visit Reason Onset Date Comments Labs Only 05/25/2014 Encounter Details Date Type Department Care Team Description 05/25/2014 Orders Only [facility] Minda Chaparro [facility] Adult Primary Care - MD Mervat maintenance (Primary Palm [address] [facility] [facility]) [address] [facility] [address] [place], [place] [address] [place] [address] [phone] Social History Tobacco Use Types Packs/Day Years Used Date Never Smoker Smokeless Tobacco: Never Used Alcohol Use Standard Drinks/Week Comments No 0 (1 standard drink = 0.6 oz pure alcoho l) Sex Assigned at Date Recorded Not on file documented as of this encounter Progress Notes Minda Chaparro MD - 05/25/2014 1539 EDT Order signed Lorenza Kingsley I. - 05/25/2014 1124 EDT Labs Pended. Will call patient to remind them of appointment with fasting labs due prior to OV. documented in this encounter Plan of Treatment Not on filedocumented as of this encounter Visit Diagnoses Diagnosis Routine health maintenance - Primary Routine general medical examination at a health care facility documented in this encounter Care Teams Filtrose Crusher Relationship Specialty Start Date End Date Minda Chaparro MD PCP - General 02/19/[address] [place] [phone] documented as of this encounter
--- OUTSIDE RECORDS SUMMARY | 2022-04-01 18:21 | XMS_ITS | Encounter Summary ---
:1970 Author Organization [facility] Address [address] [place] [address] Care Team Providers Name Role Phone Minda Chaparro MD Primary Care Provider [phone] Reason for Visit Reason Onset Date Comments Pharyngitis 08/15/2021 COVID-19 08/15/2021 POSITIVE home test x 2 COVID-19 08/15/2021 Encounter Details Date Type Department Care Team Description 08/15/2021 Telephone [facility] Minda Chaparro Pharyngit is; COVID-19 Adult Primary Care - MD Mervat (POSITIVE home test [place] [facility] x2); COVID-19 [address] [place] [address] [place], [place] [phone] Social History Tobacco Use Types Packs/Day [...] encounter Miscellaneous Notes Telephone Encounter - Ariana Moreau, DENIZ - 08/15/2021 1003 EST Outgoing call to patient. He started with a scratchy throat on Saturday, now has a cough with a littleproduction. No shortness of breath or fever. No other symptoms. He took 2 home tests yesterday that both came back positive for covid. Pt does have covid vaccines and is boosted. No known covid exposure. Plan: Pt aware current guidelines are to accept covid antigen home tests as positive, no pcr needed.Patient aware to self-isolate per [place] Dept of health guidelines. Home measures for symptom management. Call with any new/worsening symptoms. Go to the ED for shortness of breath or high fever. Discussed he should go to the [place] department of health's website to self report home test results andnotify close contacts. 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 He will have her call [employer] for direction. ARIANA MOREAU RN 08/15/2021 10:06 elephone Encounter - Beulah Lauren - 08/15/2021 0943 EST URI sx - sore throat x2 days No other sx per patient Took 2 home tests - both POSITIVE Has had both COVID vaccines & booster documented in this encounter Plan of Treatment Not on filedocumented as of this encounter Goals Goal Patient Goal Associated Recent Patient-Stated? Author Type Problems Progress LDL < 100 Result Component Elevated 195 No [place], cholesterol (09/12/2020 Lorenzacaesar Vazquez 12:04 EST) documented as of this encounter Visit Diagnoses Not on filedocumented in this encounter Care Teams Javascript Engineer Relationship Specialty Start Date End Date Minda Chaparro MD PCP - General 02/19/[address] [place] [phone] documented as of this encounter
--- OUTSIDE RECORDS SUMMARY | 2022-04-01 18:22 | XMS_ITS | Encounter Summary ---
:1970 Author Organization [facility] Address [address] [place] [address] Care Team Providers Name Role Phone Unavailable Primary Care Provider Unavailable Encounter Details Date Type Department Care Team Description 05/26/2002 Hospital Encounter [facility] - Asad Aranda [facility] MD [address] [phone] (Wo rk) Social History Tobacco Use Types Packs/Day Years Used Date Never Assessed Sex Assigned at Date Recorded Not on file documented as of this encounter Discharge Disposition Disposition Code Departure Means Destination Auto Discharge documented in this encounter Plan of Treatment Not on filedocumented as of this encounter Procedures Procedure Name Priority Date/Time Associated Diagnosis Comme nts CT HEAD W CONTRAST Routine 05/26/2002 17:17 Resul ts for this EDT procedure are i n the results section. documented in this encounter Results CT HEAD W CONTRAST (05/26/2002 17:17 EDT) Anatomical Region Laterality Modality Other Specimen Narrative [facility] - 05/09/2009 4: [address], NEW ONSET CONSTANT HEADACHES X 3 WEEK DURATION R/O MASS CT OF THE HEAD WITH CONTRAST. FINDINGS: The ventricles and the sulci are normal. No mass or hemorrhage. No fracture. The sinuses are grossly clear. IMPRESSIONS: Normal contrast-enhanced head CT. /tns Procedure Note AlsoMike doe MD - 05/09/[address], NEW ONSET CONSTANT HEADACHES X 3 WEEK DURATION R/O MASS CT OF THE HEAD WITH CONTRAST. FINDINGS: The ventricles and the sulci are normal. No mass or hemorrhage. No fracture. The sinuses are grossly clear. IMPRESSIONS: Normal contrast-enhanced head CT. /beverlys Performing Organization Address City/State/ZIP Code Phon e Number [facility] [address] [facility] [place] [address] [facility] [address] [place], [place] [address] documented in this encounter Visit Diagnoses Not on filedocumented in this encounter
--- OUTSIDE RECORDS SUMMARY | 2022-04-01 18:22 | XMS_ITS | Encounter Summary ---
:1970 Author Organization [facility] Address [address] [place] [address] Care Team Providers Name Role Phone Mandeep Aranda MD Primary Care Provider Minda Chaparro MD Primary Care Provider [phone] Encounter Details Date Type Department Care Team Description 07/09/2008 Hospital Encounter [facility] - Asad Aranda Maple conversion MD [address] [phone] (Wo rk) Social History Tobacco Use [...] / COVID-19? documented as of this encounter Plan of [...] documented as of this encounter Care Teams Dent Remover Relationship Specialty Start Date End Date Mandeep Aranda MD PCP - General 05/02/10 02/18/14 [address] [place] [phone] Minda Chaparro MD PCP - General 02/19/14 [address] [place] [phone] documented as of this encounter
--- OUTSIDE RECORDS SUMMARY | 2022-04-01 18:22 | XMS_ITS | Continuity of Care Document ---
:[address] [facility] Address [address] [place] [address] Phone Care Team Providers Name Role Phone Minda Chaparro Primary Care Provider Allergies, Adverse Reactions, Alerts No known allergies Social History Smoking Status Status Start Date End Date Date of Observat ion Never smoked tobacco (finding) D ecember 2020 11:40am Observation Status Observation Response Date of Response Alcohol Use No August 01, 2021 11:40am substance use type does not use August 01, 2021 11:40am Smoking Status Never smoker August 01, 2021 11:40am Additional Data Assigned Sex Male Problems Active Problems Medical Problem Onset Date Status Impacted cerumen of right ear Active External otitis of right ear Active Medications Medication Status Dose Units Route Directions Qty Days Start End Ins tructions Date Date Claritin Active August 01, 2021 11:28am Flonase Active August 01, 2021 11:28am Vital Signs Vital Reading Result Reference Range Collection Date/ Time Weight 97.52 kg August 01 11:28am Body Temperature 98.2 [degF] 97.6-99.6 August 01, 2021 11:28am Heart Rate 78 /min 60-100 August 01 11:28am Respiratory rate 18 /min 12-August 01, 2021 11:28am Oxygen saturation by Pulse 97 % 95-100 Decem 2020 11:28am oximetry BP Systolic 128 mm[Hg] 100-140 August 01 11:28am BP Diastolic 82 mm[Hg] 50-85 August 01 11:28am Advance Directives Advance Directive Response Recorded Date/Time Does patient have an Advanced Directive? No August 01, 2021 11:24am Do we have a copy on file here at [facility]? No D ec2020 11:24am Pt has a Living Will? No August 01 11:24am Do we have a copy on file here at [facility]? No D ecember 2020 11:24am Pt has a Power of Drywall Hanger Framer? No July 11:24am Do we have a copy on file here at [facility]? No D ecember 2020 11:24am Insurance Providers Guarantor BRIAN WU Address [address] [facility] [address] Contact Info. Home Phone: Payer Policy Id Coverage Id Subscriber's Subscriber Id Effective E xpiration Name Date Date JAM WILL [id number] GABRIELA JAZMIN [id number] [place] [id number] SELF PAY Self N/A Encounters Encounter Location(s) Arrival/Admit Date Discharge/Depart Date Provider(s) Departed [facility] August 01, August 01, 2021 [facility] 2020 11:18am 11:53am [facility] Functional Status Observation Response Date Recorded Living Situation With Spouse August 01, 2021 11:28am Plan of Treatment Future Tests Future scheduled test information is unavailable Pending Tests Pending diagnostic test information is unavailable Future Visits Future appointment information is unavailable Referrals to Other Providers Reason for Referral Start Provider Provider Contact Provider Address Referral Date Information Minda Chaparro , Work Phone: [facility] Van Kennedy MD Ja Styles [facility] [address] Future Procedures Future procedure information is unavailable Future Medications Future medication information is unavailable Patient Instructions Patient instructions are unavailable
--- OUTSIDE RECORDS SUMMARY | 2022-04-01 18:22 | XMS_ITS | Continuity of Care Document ---
:1970 Author Organization [facility] Address [address] [place] [address] Care Team Providers Name Role Phone Minda Chaparro Primary Care Physician Allergies, Adverse Reactions, Alerts No known allergies. Medications Active Medications Medication Route Start Date Status Claritin August 01, 2021 Active Flonase August 01, 2021 Active Problem List Active Problems Medical Problem Onset Date Status Impacted cerumen of right ear Active External otitis of right ear Active Procedures No known history of procedures. Relevant Diagnostic Tests and/or Laboratory Data No known relevant diagnostic tests, laboratory data, and/or discharge summary. Advance Directives Advance Directive Response Recorded Date/Time Do we have a copy on file here at [facility]? No D ec2020 11:24am Does patient have an Advanced Directive? No August 01, 2021 11:24am Pt has a Living Will? No August 01, 2021 11:24am Pt has a Power of Customer Care Voice Consultant? No August 01, 2021 11:24am Hospital Discharge Instructions No known hospital discharge instructions. Hospital Discharge Medications Medication Dose Units Route Sig Qty Days Order Date Status In structions Claritin August 01, 2021 Acti ve Flonase August 01, 2021 Activ e Encounters Encounter Facility Location Admit/Visit Discharge/Departure Atte nding Date Date Provider Departed [facility] August 01, August 01, 2021 [facility] 2020 11:18am 11:53am Functional Status Query Response Date Recorded Comment Living Situation With Spouse August 01, 2021 11:28am Immunizations No known immunizations. Plan of Care No Known Plan of Care Information Social History Query Response Date Recorded Comment Alcohol Use No August 01, 2021 11:40am Smoking Status Never smoker August 01, 2021 11:40am substance use type does not use August 01, 2021 11:40am Query Response Start Date Stop Date Smoking Status Never smoker Vital Signs Vital Reading Result Reference Range Collection Date/ Time Weight 97.522 kg August 01 11:28am Temperature 98.2 F 97.6 F-99.6 F August 01 11:28am Pulse 78 BPM 60-100 August 01 11:28am Respiration 18 RPM 12-24 August 01 11:28am Pulse Oximetry 97 % 95-100 August 01 11:28am Blood Pressure Systolic 128 100-140 August 01, 2021 11:28am Blood Pressure Diastolic 82 50-85 [facility] 2020 11:28am
--- OUTSIDE RECORDS SUMMARY | 2022-04-01 18:22 | XMS_ITS | Encounter Summary ---
:1970 Author Organization [facility] Address [address] [place] [address] Care Team Providers Name Role Phone Mandeep Aranda MD Primary Care Provider Minda Chaparro MD Primary Care Provider [phone] Encounter Details Date Type Department Care Team Description 09/27/2005 Hospital [facility] Asad Aranda Maple conversion MD [address] [phone] (Wo rk) Social History Tobacco Use [...] documented as of this encounter Care Teams Mold Builder Relationship Specialty Start Date End Date Mandeep Aranda MD PCP - General 05/02/10 02/18/14 [address] [place] [phone] Minda Chaparro MD PCP - General 02/19/14 [address] [place] [phone] documented as of this encounter
--- OUTSIDE RECORDS SUMMARY | 2022-04-01 18:22 | XMS_ITS | Continuity of Care Document ---
:1970 Author Organization [facility] Address [address] [place] [address] Care Team Providers Name Role Phone Minda Chaparro Primary Care Physician Allergies, Adverse Reactions, Alerts No known allergies. Medications Active Medications Medication Dose Units Route Sig Qty Days Start Date [facility] August 01 Active Flonase August 01 Active Ciprofloxacin-Dexam 4 DROP RIGHT EAR TWICE A DAY 7.5 7 August 01, 2021 Active ethasone [Ciprodex] Problem List Active Problems Medical Problem Onset [...] [facility] [place] [place] D ec2020 11:24am Does patient have an Advanced Directive? No August 01, 2021 11:24am Pt has a Living Will? No August 01, 2021 11:24am Pt has a Power of Portfolio Specialist? No August 01, 2021 11:24am Hospital Discharge Instructions No known hospital discharge instructions. Hospital Discharge Medications Medication Dose Units Route Sig Qty Days Order Date Status In structions Claritin August 012020 Flonase August 012020 Ciprofloxacin-D 4 DROP RIGHT EAR TWICE A 7.5 7 August 01 , examethasone DAY 2020 Encounters Encounter Facility Location Admit/Visit Discharge/Departure Atte nding Date Date Provider Departed [facility] August 01, August 01, 2021 Emergency [...] 2021 11:28am Blood Pressure Diastolic 82 50-85 [facility] 2020 11:28am
--- OUTSIDE RECORDS SUMMARY | 2022-04-01 18:22 | XMS_ITS | Continuity of Care Document ---
:1970 Author Organization [facility] Address [address] [place] [address] Phone Care Team Providers Name Role Phone [...] have a copy on file here at [facility]? No D ec2020 11:24am Pt has a Living Will? No August 01 11:24am Do we have a copy on file here at [facility]? No D ecember 2020 11:24am Pt has a Power of Web Developer? No July 11:24am Do we have a copy on file here at [facility]? No D ecember 2020 11:24am Insurance Providers Guarantor BRIAN WU Address [address] [facility] [address] Contact Info. Home Phone: Payer Policy Id Coverage Id Subscriber's Subscriber Id Effective E xpiration Name Date Date JAM WILL [id number] GABRIELA JAZMIN [id number] [place] [id number] SELF PAY Self N/A Encounters Encounter Location(s) Arrival/Admit Date Discharge/Depart Date Provider(s) Departed [facility] August 01, August 01, 2021 [facility] 2020 11:18am 11:53am [facility] Functional Status Observation Response Date Recorded Living Situation With Spouse August 01, 2021 11:28am Plan of Treatment Future Tests Future scheduled test information is unavailable Pending Tests Pending diagnostic test information is unavailable Future Visits Future appointment information is unavailable Referrals to Other Providers Reason for Referral Start Provider Provider Contact Provider Address Referral Date Information Minda Chaparro , Work Phone: [facility] Van Kennedy MD Ja Styles [facility] 05 [phone] Future Procedures Future procedure information is unavailable Future Medications Future medication information is unavailable Patient Instructions Patient instructions are unavailable
--- OUTSIDE RECORDS SUMMARY | 2022-04-01 18:22 | XMS_ITS | Encounter Summary ---
:1970 Author Organization [facility] Address [address] [place] [address] Care Team Providers Name Role Phone Mandeep Aranda MD Primary Care Provider Reason for Visit Reason Onset Date Comments Medications Refill 01/09/2012 Encounter Details Date Type Department Care Team Description 01/09/2012 Refill [facility] Adult Mandeep King MD Medications Refill Primary Care - [address] [phone] (Wo rk) Social History Tobacco Use Types Packs/Day Years Used Date Never Smoker Alcohol Use Standard Drinks/Week Comments No 0 (1 standard drink = 0.6 oz pure alcoho l) Sex Assigned at Date Recorded Not on file documented as of this encounter Ordered Prescriptions Prescription Sig Dispensed Refills Start Date End Date fluticasone (FLONASE) 50 1 [place] by Nasal 1 Bottle 0 01/0806/25/2012 mcg/actuation nasal spray route daily. NEEDS OFFICE VISIT documented in this encounter Miscellaneous Notes Telephone Encounter - Adelaida Rome - 01/16/2012 1400 EDT Attempted to phone pt again, however he name is not the cell phone anymore so msg was not left. Telephone Encounter - Adelaida Rome - 01/10/2012 1527 EDT Left msg for pt to call back-used cell phone number found in [id number] [phone] documented in this encounter Plan of Treatment Not on filedocumented as of this encounter Visit Diagnoses Not on filedocumented in this encounter Discontinued Medications Medication Sig Discontinue Reason Start Date End Date fluticasone (FLONASE) 50 [address] [place] by Nasal Reorder 06/04/2011 01/09/2012 mcg/Actuation nasal spray route daily. documented as of this encounter Care Teams Operators Teacher Relationship Specialty Start Date End Date Mandeep Aranda MD PCP - General 05/02/10 02/18/[address] [place] [phone] documented as of this encounter
--- OUTSIDE RECORDS SUMMARY | 2022-04-01 18:22 | XMS_ITS | Encounter Summary ---
:[address] [facility] Address [address] [place] [address] Care Team Providers Name Role Phone Unavailable Primary Care Provider Unavailable Reason for Visit Reason Onset Date Comments Medications Refill 03/13/2010 Encounter Details Date Type Department Care Team Description 03/13/2010 Refill [facility] Adult Hellen Reese RN Medications Refill [place] [address] Social History Tobacco Use Types Packs/Day Years Used Date Never Assessed Sex Assigned at Date Recorded Not on file documented as of this encounter Plan of Treatment Not on filedocumented as of this encounter Visit Diagnoses Not on filedocumented in this encounter
--- OUTSIDE RECORDS SUMMARY | 2022-04-01 18:22 | XMS_ITS | Encounter Summary ---
:1970 Author Organization [facility] Address [address] [place] [address] Care Team Providers Name Role Phone Unavailable Primary Care Provider Unavailable Encounter Details Date Type Department Care Team Description 11/02/2005 Office Visit [facility] Urology Trav Avila, - [facility] [address] [facility] [address] [place] [address] [address] JUAN DANIEL WINTER [phone] (Wo rk) Social History Tobacco Use Types Packs/Day Years Used Date Never Assessed Sex Assigned at Date Recorded Not on file documented as of this encounter Progress Notes Esteban Avila MD - 09/07/2009 1422 EST DIVISION OF UROLOGY CHART NOTE - 11/02/2005 The patient was placed in the supine position. The scrotum had been previously shaved. He was prepped and draped in the usual fashion for a vasectomy. The left vas was then grasped firmly between the thumb and forefinger and fixated beneath the skin. The area was infiltrated with 1% Xylocaine. A smallincision was made and the vas was delivered through the incision. Two hemo-clips were placed distally and one was placed proximally. The small segment of vas was then removed. Hemostasis was checked for and obtained. The identical procedure was then undertaken on the right side. Again, the vas was grasped firmly and fixated beneath the skin. The area was infiltrated with 1% Xylocaine. A small incision was made and the vas was delivered through the incision. Two hemo-clips were placed distally and one was placed proximally. The small segment of vas was then removed. Again, hemostasis was carefully checked for. The vasa were then delivered back into the scrotum and both incisions were closed with 4-0 chromic suture. The procedure was then terminated. The patient tolerated the procedure well. Signed by Esteban Avila MD 11/26/2005 12:58 Shaquille Birch MD D: - Esteban Avila MD P - glt Job ID: Document ID: [id number] cc: Mandeep Aranda MD Esteban Avila MD - 09/07/2009 1419 EST DIVISION OF UROLOGY November 02, 2005 Mandeep Aranda MD [address] [address] Dear Amrit Kamara was seen in the office today. His did accompany him. He was seen this morning for a pre-vasectomy visit. After discussion with him, an due to an unexpected opening in the schedule this afternoon, he returned to the office and underwent an uneventful vasectomy. If further follow up is required, I will, of course, keep you informed. Sincerely, Signed by Esteban Avila MD 11/26/2005 12:58 Shaquille Birch MD D: - Esteban Avila MD P - glt Job ID: Document ID: [id number] cc: Mandeep Aranda MD Enc: vasectomy procedure note documented in this encounter Plan of Treatment Not on filedocumented as of this encounter Visit Diagnoses Not on filedocumented in this encounter
--- OUTSIDE RECORDS SUMMARY | 2022-04-01 18:22 | XMS_ITS | Encounter Summary ---
:1970 Author Organization [facility] Address [address] [place] [address] Care Team Providers Name Role Phone Unavailable Primary Care Provider Unavailable Encounter Details Date Type Department Care Team Description 08/09/1999 Hospital Encounter [facility] - Mandeep Aranda MD [address] [place] [phone] Other Unknown, Provider, [address] [place], [place] [address] Social History Tobacco Use Types Packs/Day Years Used Date Never Assessed Sex Assigned at Date Recorded Not on file documented as of this encounter Discharge Disposition Disposition Code Departure Means Destination Auto Discharge documented in this encounter Plan of Treatment Not on filedocumented as of this encounter Procedures Procedure Name Priority Date/Time Associated Diagnosis Comme nts LIPID PROFILE Routine 08/09/1999 12:00 Results fo r this (INCLUDES EST procedure are i n CHOLESTEROL, the results TRIGLYCERIDES, HDL, section. LDL) documented in this encounter Results LIPID PROFILE (INCLUDES CHOLESTEROL, TRIGLYCERIDES, HDL, LDL) (08/09/1999 12:00 EST) Cholesterol 257 mg/dl [facility] Comment: Desirable:<200 Borderline:200-239 High Risk:>kl=661 Fasting Triglycerides 80Comment: 35 - 160 mg/dl [facility] Fasting HDL 42 mg/dl [facility] Comment: Highly Desirable:>60 Desirable:35-60 High Risk:<35 Fasting LDL, Calculated 199 mg/dl [facility] Comment: Desirable:<130 Borderline:130-159 High Risk:>qh=252 Fasting Chol/HDL Ratio 6.1 [facility] Fasting Specimen Performing Organization Address City/State/ZIP Code Phon e Number [facility] [address] [place] [address] SERVICES [facility] [address] [place] [phone] documented in this encounter Visit Diagnoses Not on filedocumented in this encounter
--- OUTSIDE RECORDS SUMMARY | 2022-04-01 18:22 | XMS_ITS | Encounter Summary ---
:1970 Author Organization [facility] Address [address] [place] [address] Care Team Providers Name Role Phone Unavailable Primary Care Provider Unavailable Encounter Details Date Type Department Care Team Description 07/09/2008 Before PRISM Converted [facility] - Mandeep Aranda Visit (Maple) Roma Cross MD [address] [place] [address] [phone] [place] [phone] Social History Tobacco Use Types Packs/Day Years Used Date Never Assessed Sex Assigned at Date Recorded Not on file documented as of this encounter Progress Notes Mandeep Aranda MD - 03/05/2009 8505 EDT Primary Care Internal Medicine [address] [place] [phone] PROGRESS/FOLLOWUP NOTE - 07/09/2008 PROBLEM 3: Allergic rhinitis. PROBLEM 2: Hyperlipidemia. SUBJECTIVE Endy is 38 years old. He returns for followup and renewal of his allergy medication. He continues to use Flonase and Claritin for allergies most of the year and he feels that theydo a good job of controlling his allergy symptoms. He has not tried using just one of them by itself. He does not take any other medications. He denies any problems with cough or shortness of breath, nochest pain or palpitations. No abdominal pain or change in bowel or urinary habits. He does not smoke and he drinks alcohol moderately. The past medical history was reviewed on the problem list. OBJECTIVE Blood pressure is 130/80, weight is 210 pounds. He appears well in general, perhaps mildly overweight. Eyes, ears, nose and throat are normal. Neck: No lymph or thyroid enlargement. The lungs are clear with no wheezing. The heart is regular with no murmur. : No testicular or scrotal masses or tenderness. Abdomen is soft and nontender with no masses or organomegaly. Labs on June 28 show normal chemistries and a cholesterol that has improved considerably. It is down to 197 with HDL 46, LDL 38 as opposed to an LDL of 199 a few years ago. ASSESSMENT 1. Allergic rhinitis being symptomatic, but stable on Flonase and Claritin. 2. Hyperlipidemia doing much better these days and just borderline at this point. PLAN B. Renewed Flonase. Continue the Flonase and Claritin as needed. B2. Encouraged to keep up the good work with his cholesterol, but still to be careful because it is only borderline. B3. Follow up in one year to renew medications and recheck the cholesterol. Signed by Mandeep Aranda MD 07/21/2008 13:01 Mandeep Aranda MD - [place] Aranda MD Lonnie CUN[place]AM Job ID: [id number] Doc ID: [id number] cc: documented in this encounter Plan of Treatment Not on filedocumented as of this encounter Visit Diagnoses Not on filedocumented in this encounter
--- OUTSIDE RECORDS SUMMARY | 2022-04-01 18:22 | XMS_ITS | Encounter Summary ---
:1970 Author Organization [facility] Address [address] [place] [address] Care Team Providers Name Role Phone Unavailable Primary Care Provider Unavailable Reason for Visit Reason Onset Date Comments Medications Refill 03/13/2010 Labs Only 03/13/2010 Encounter Details Date Type Department Care Team Description 03/13/2010 Telephone [facility] Mandeep Aranda Medic ations Refill; Adult Primary Care - MD [place] Labs Only [id number] [place] [address] [phone] Social History Tobacco Use Types Packs/Day Years Used Date Never Assessed Sex Assigned at Date Recorded Not on file documented as of this encounter Ordered Prescriptions Prescription Sig Dispensed Refills Start Date End Date loratadine (CLARITIN) 10 Take 1 Tab by mouth 30 Tab 2 05/08/2010 mg tabletIndications: daily. Allergic rhinitis fluticasone (FLONASE) 50 1 [place] by Nasal 1 Bottle 2 03/1306/04/2011 mcg/Actuation nasal spray route daily. documented in this encounter Miscellaneous Notes Telephone Encounter - Mandeep Aranda MD - 03/14/2010 1301 EDT Addended by: MANDEEP ARANDA on: 03/14/2010 Modules accepted: Orders elephone Encounter - Asia Huerta - 03/13/2010 1515 EDT Patient requesting refills on flonase and a new rx for claritin (he has been using over the counter as needed) His allergies are bad and sneezing a lot. Wants prescriptions for both. He has not been seen since 2007. Made him an appointment for 05/08/10 with Asad. Will go for fasting labs prior. Please make order. documented in this encounter Plan of Treatment Not on filedocumented as of this encounter Results LIPID PROFILE (INCLUDES CHOLESTEROL, TRIGLYCERIDES, HDL, LDL) (05/02/2010 13:47 EDT) Cholesterol 203Comment: mg/dl [facility] Desirable:<200 LAB Borderline High:200-239 High:>rd=188 Triglycerides 106 35 - 160 mg/dl [facility] HDL 42Comment: Low:<40 mg/dl [facility] High(Desirable):>or LAB =60 LDL, Calculated 140 mg/dl [facility] Comment: LAB Optimal:<100 Above optimal:100-129 Borderline High:130 -159 High:160-189 Very High:>am=657 Chol/HDL Ratio 4.8 [facility] Fasting? No [facility] Performed at [facility], [place], [place] LAB Specimen Blood specimen (specimen) Performing Organization Address City/State/ZIP Code Phon e Number [facility] [address] [place] [address] SERVICES [facility] [address] [place] [address] (ABNORMAL) COMPREHENSIVE METABOLIC PANEL (05/02/2010 13:47 EDT) Potassium 4.3 3.5 - 5.0 [facility] mEq/L LAB Sodium 142 136 - 145 [facility] mEq/L LAB Chloride 104 96 - 110 [facility] mEq/L LAB CO2 29 24 - 32 mEq/L [facility] Total Alkaline 64 38 - 126 U/L [facility] Phosphatase LAB Bilirubin, Total <0.5 0.2 - 1.3 [facility] mg/dl LAB AST 22 15 - 46 U/L [facility] ALT 20 (L) 21 - 72 U/L [facility] Albumin 4.0 3.4 - 4.9 [facility] g/dl LAB Total Protein 6.8 6.5 - 8.3 [facility] g/dl LAB Creatinine 0.92 0.7 - 1.5 [facility] mg/dl LAB GFR, Calculated >60 ml/min/1.73m2 [facility] BUN 14 10 - 26 mg/dl [facility] Calcium 9.6 8.5 - 10.5 [facility] mg/dl LAB Calculated Calcium 10.0 8.5 - 10.5 [facility] mg/dl LAB Glucose, Serum 90 70 - 100 [facility] mg/dl LAB Fasting? No [facility] Performed at [facility], [place], [place] LAB Specimen Blood specimen (specimen) Performing Organization Address City/State/ZIP Code Phon e Number [facility] [address] [place] [address] SERVICES [facility] [address] [place] [address] documented in this encounter Visit Diagnoses Diagnosis Allergic rhinitis - Primary Allergic rhinitis, cause unspecified Hyperlipidemia Other and unspecified hyperlipidemia documented in this encounter
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
--- OUTSIDE RECORDS SUMMARY | 2022-04-01 18:22 | XMS_ITS | Continuity of Care Document ---
:1970 Author Organization [facility] Address [address] [place] [address] Care Team Providers Name Role Phone Minda Chaparro Primary Care Physician Allergies, Adverse Reactions, Alerts No allergy information available. Medications No medication information available. Problem List No problem information available. Procedures No known history of procedures. Relevant Diagnostic Tests and/or Laboratory Data No known relevant diagnostic tests, laboratory data, and/or discharge summary. Advance Directives Advance Directive Response Recorded Date/Time Do we have a copy on file here at [facility]? No D ec2020 11:24am Does patient have an Advanced Directive? No August 01, 2021 11:24am Pt has a Living Will? No August 01, 2021 11:24am Pt has a Power of Speech Therapy Assistant? No August 01, 2021 11:24am Hospital Discharge Instructions No known hospital discharge instructions. Encounters Encounter Facility Location Admit/Visit Discharge/Departure Atte nding Date Date Provider Registered [facility], [facility] [place] 2020 11:18am Functional Status No known functional status. Immunizations No known immunizations. Plan of Care No Known Plan of Care Information Social History No known social history. Vital Signs No known vital signs results.
--- OUTSIDE RECORDS SUMMARY | 2022-04-01 18:22 | XMS_ITS | Encounter Summary ---
:1970 Author Organization [facility] Address [address] [place] [address] Care Team Providers Name Role Phone Mandeep Aranda MD Primary Care Provider Minda Chaparro MD Primary Care Provider [phone] Encounter Details Date Type Department Care Team Description 11/02/2005 Hospital Encounter [facility] - Trav Avila [facility] MD Prem [address] [facility] [address] [place] [address] [address] JUAN DANIEL WINTER [phone] (Wo rk) Social History Tobacco Use Types [...] documented as of this encounter Care Teams Automated Weaver Relationship Specialty Start Date End Date Mandeep Aranda MD PCP - General 05/02/10 02/18/14 [address] [place] [phone] Minda Chaparro MD PCP - General 02/19/14 [address] [place] [phone] documented as of this encounter
--- OUTSIDE RECORDS SUMMARY | 2022-04-01 18:22 | XMS_ITS | Encounter Summary ---
:1970 Author Organization [facility] Address [address] [place] [address] Care Team Providers Name Role Phone Mandeep Aranda MD Primary Care Provider Reason for Visit Reason Onset Date Comments Medications Refill 06/04/2011 Encounter Details Date Type Department Care Team Description 06/04/2011 Refill [facility] Adult Mandeep King MD Medications Refill Primary Care - [address] [phone] (Wo rk) Social History Tobacco Use Types Packs/Day Years Used Date Never Smoker Alcohol Use Standard Drinks/Week Comments No 0 (1 standard drink = 0.6 oz pure alcoho l) Sex Assigned at Date Recorded Not on file documented as of this encounter Ordered Prescriptions Prescription Sig Dispensed Refills Start Date End Date fluticasone (FLONASE) 50 1 [place] by Nasal 1 Bottle 1 06/0401/09/2012 mcg/Actuation nasal spray route daily. documented in this encounter Plan of Treatment Not on filedocumented as of this encounter Visit Diagnoses Not on filedocumented in this encounter Discontinued Medications Medication Sig Discontinue Reason Start Date End Date fluticasone (FLONASE) 50 1 [place] by Nasal Reorder 03/13/2010 06/04/2011 mcg/Actuation nasal spray route daily. documented as of this encounter Care Teams Foreign Exchange Trader Relationship Specialty Start Date End Date Mandeep Aranda MD PCP - General 05/02/10 02/18/[address] [place] [phone] documented as of this encounter
--- OUTSIDE RECORDS SUMMARY | 2022-04-01 18:22 | XMS_ITS | Encounter Summary ---
:1970 Author Organization [facility] Address [address] [place] [address] Care Team Providers Name Role Phone Mandeep Aranda MD Primary Care Provider Encounter Details Date Type Department Care Team Description 05/02/[address] [facility] Adult Mandeep King MD Primary Care - [facility] [address] [phone] [place] [address] [phone] Social History Tobacco Use Types Packs/Day Years Used Date Never Assessed Sex Assigned at Date Recorded Not on file documented as of this encounter Plan of Treatment Not on filedocumented as of this encounter Visit Diagnoses Not on filedocumented in this encounter Care Teams Yarn Skeins Examiner Relationship Specialty Start Date End Date Mandeep Aranda MD PCP - General 05/02/10 02/18/14 [address] [place] [phone] documented as of this encounter
--- OUTSIDE RECORDS SUMMARY | 2022-04-01 18:22 | XMS_ITS | Encounter Summary ---
:1970 Author Organization [facility] Address [address] [place] [address] Care Team Providers Name Role Phone Mandeep Aranda MD Primary Care Provider Reason for Visit Reason Comments Allergies Encounter Details Date Type Department Care Team Description 05/08/2010 Office Visit [facility] Mandeep Aranda gic rhinitis; Adult Primary Care - [place] Elevated cholesterol [place] [facility] [address] [place], [place] [address] [place] [address] [phone] Social History Tobacco Use Types Packs/Day Years Used Date Never Smoker Alcohol Use Standard Drinks/Week Comments No 0 (1 standard drink = 0.6 oz pure alcoho l) Sex Assigned at Date Recorded Not on file documented as of this encounter Last Filed Vital Signs Vital Sign Reading Time Taken Comments Blood Pressure 120/70 05/08/2010 1515 EDT Pulse 62 05/08/2010 1515 EDT Temperature - - Respiratory Rate 12 05/08/2010 1515 EDT Oxygen Saturation - - Inhaled Oxygen Concentration - - Weight 93.4 kg (206 lb) 05/08/2010 1515 EDT Height 177.8 cm (5' 10) 05/08/2010 1515 EDT Body Mass Index 29.56 05/08/2010 1515 EDT documented in this encounter Ordered Prescriptions Prescription Sig Dispensed Refills Start Date End Date fexofenadine (VERONICA) 180 Take 1 Tab by mouth 30 Tab 3 05/08/2010 06/02/2014 mg tablet daily. documented in this encounter Progress Notes Mandeep Aranda MD - 05/15/2010 1530 EDT Primary Care Internal Medicine [address] [place] [address] PROGRESS/FOLLOWUP NOTE - 05/08/2010 Mr Arambula is a 39-year-old man who returns for follow up after 2 years regarding: Allergic rhinitis. Hyperlipidemia. SUBJECTIVE: In general, Endy feels healthy. He does continue to use Flonase and [id number] loratadine for allergies. That is not as effective as it use to be and he has been having a little more in the way of allergy symptoms this fall. He is not on any other medications. He denies any other complaints. REVIEW OF SYSTEMS: Negative for unusual weight changes, headache, fatigue, chest pain, shortness of breath, abdominal pain or change in bowel or urinary habits. He does not smoke. The past history is reviewed and updated on the [facility] problem list. OBJECTIVE: Blood pressure 120/70, weight 206. He appears well in general if just mildly overweight. Neck: No lymph or thyroid enlargement. The lungs are clear. The heart is regular with no gallop or murmur. Abdomen is soft and nontender. : No testicular or scrotal masses or tenderness. Cholesterol is 203 with HDL 42 and LDL 140. It was as high as 257 in 1998. Chemistries are normal. ASSESSMENT: 1. Allergic rhinitis is symptomatic. 2. Hyperlipidemia is borderline or slightly abnormal. PLAN: 1. Will try switching him from loratadine to Veronica 180 mg daily to be used along with the Flonase to see if that combination will give him good control. 2. He will renew his efforts to lower his cholesterol with a little weight loss and being careful with his diet. 3. Follow up in 2 to 3 years for an HME. Electronically Signed by Mandeep Aranda MD 05/15/2010 15:30 Mandeep Aranda MD D: - Mandeep Aranda MD - MARISA Job ID: SM Doc ID: [id number] Ext Doc ID: cc: andeep Aranda MD - 05/09/2010 1323 EDT This office note has been dictated. documented in this encounter Miscellaneous Notes Scanned Note-Null - John, Seo Executive - 01/29/2011 1535 EDT documented in this encounter Plan of Treatment Not on filedocumented as of this encounter Visit Diagnoses Diagnosis Allergic rhinitis Allergic rhinitis, cause unspecified Elevated cholesterol Pure hypercholesterolemia documented in this encounter Discontinued Medications Medication Sig Discontinue Reason Start Date End Date loratadine (CLARITIN) 10 Take 1 Tab by mouth 0 05/08/2010 mg tabletIndications: daily. Allergic rhinitis documented as of this encounter Care Teams Customer Associate Relationship Specialty Start Date End Date Mandeep Aranda MD PCP - General 05/02/10 02/18/[address] [place] [phone] documented as of this encounter
--- OUTSIDE RECORDS SUMMARY | 2022-04-01 18:22 | XMS_ITS | Continuity of Care Document ---
:1970 Author Organization [facility] Address [address] [place] [address] Care Team Providers Name Role Phone Minda Chaparro Primary Care Physician Allergies, Adverse Reactions, Alerts No known allergies. Medications Active Medications Medication Dose Units Route Sig Qty Days Start Date St atus Claritin August 01 Active Flonase August 01 Active Discontinued Medications Medication Dose Units Route Sig Qty Days Start Date Discontin ued Status Date Ciprofloxacin 4 DROP RIGHT TWICE A 7.5 7 July Decembe r 28, Discontinued -Dexamethason EAR DAY 2020 e [Ciprodex] Problem List Inactive/Resolved Problems Medical Problem Onset Date Status Impacted cerumen of right ear Inactive External otitis of right ear Inactive Procedures No known history of procedures. Relevant Diagnostic Tests and/or Laboratory Data No known relevant diagnostic tests, laboratory data, and/or discharge summary. Advance Directives Advance Directive Response Recorded Date/Time Do we have a copy on file here at [facility] D ecember 2020 11:24am Does patient have an Advanced Directive? No August 01, 2021 11:24am Pt has a Living Will? No August 01, 2021 11:24am Pt has a Power of Assignment Desk Assistant? No August 01, 2021 11:24am Hospital Discharge Instructions No known hospital discharge instructions. Hospital Discharge Medications Medication Dose Units Route Sig Qty Days Order Date Status In structions Claritin July Flonase July Ciprofloxacin 4 DROP RIGHT TWICE A 7.5 7 July Discont inued -Dexamethason EAR DAY 2020 e Encounters Encounter Facility Location Admit/Visit Discharge/Departure Atte nding Date Date Provider Departed [facility] August 01August 01, 2021 [facility] 2020 11:18am 11:53am Functional Status Query Response [...] 2021 11:28am Blood Pressure Diastolic 82 50-85 [facility] 2020 11:28am
--- OUTSIDE RECORDS SUMMARY | 2022-04-01 18:22 | XMS_ITS | Encounter Summary ---
:1970 Author Organization [facility] Address [address] [place] [address] Care Team Providers Name Role Phone Unavailable Primary Care Provider Unavailable Encounter Details Date Type Department Care Team Description 07/28/1999 Hospital Encounter [facility] Sandy Kuo ANP Other Unknown, Provider, [address] [place] [address] Social History Tobacco Use Types Packs/Day Years Used Date Never Assessed Sex Assigned at Date Recorded Not on file documented as of this encounter Discharge Disposition Disposition Code Departure Means Destination Auto Discharge documented in this encounter Plan of Treatment Not on filedocumented as of this encounter Procedures Procedure Name Priority Date/Time Associated Comments Diagnosis THYROID CASCADE Routine 07/28/1999 15:25 Results for this EST procedure are i n the results section. COMPLETE BLOOD COUNT Routine 07/28/1999 15:25 Res ults for this EST procedure are i n the results section. LIPID PROFILE Routine 07/28/1999 15:25 Results fo r this (INCLUDES CHOLESTEROL, EST proce dure are in TRIGLYCERIDES, HDL, the resu lts LDL) section. COMPREHENSIVE Routine 07/28/1999 15:25 Results fo r this METABOLIC PANEL (CMP) EST proced ure are in the results section. documented in this encounter Results THYROID CASCADE (07/28/1999 15:25 EST) TSH 1.04 0.35 - 5.50 [facility] Comment: uIU/ml TSH cascade is not recommended for patients in which pituitary or hypothalamic disorders are suspected. Specimen Performing Organization Address [facility]/ZIP [facility] Phon e Number [facility] [address] [place] [address] SERVICES [facility] [address] [place] [address] LIPID PROFILE (INCLUDES CHOLESTEROL, TRIGLYCERIDES, HDL, LDL) (07/28/1999 15:25 EST) Cholesterol 216 mg/dl [facility] Comment: Desirable:<200 Borderline:200-239 High Risk:>pw=336 Marked hemolysis Triglycerides 145Comment: Marked 35 - 160 mg/dl [facility] hemolysis HDL 31 mg/dl [facility] Comment: Highly Desirable:>60 Desirable:35-60 High Risk:<35 Marked hemolysis LDL, Calculated 156 mg/dl [facility] Comment: Desirable:<130 Borderline:130-159 High Risk:>xp=496 Marked hemolysis Chol/HDL Ratio 7.0 [facility] Marked hemolysis Specimen Performing Organization Address [facility] Phon e Number [facility] [address] [place] [address] SERVICES [facility] [address] [place] [address] COMPREHENSIVE METABOLIC PANEL (07/28/1999 15:25 EST) Potassium Specimen unsuitable for analysis. 3.5 - 5.0 FLETCHE R [facility] Marked hemolysis mEq/L LAB Sodium 143Comment: Marked 136 - 145 [facility] hemolysis mEq/L LAB Chloride 106Comment: Marked 96 - 110 [facility] hemolysis mEq/L LAB CO2 25Comment: Marked 24 - 30 mEq/L [facility] hemolysis LAB Total Alkaline 67Comment: Marked 38 - 126 U/L [facility] Phosphatase hemolysis LAB Bilirubin, Total Specimen unsuitable for analysis. 0.2 - 1.3 FLE TCHER [facility] Marked hemolysis mg/dl LAB AST Specimen unsuitable for analysis. 8 - 50 U/L [facility] Marked hemolysis LAB Albumin Specimen unsuitable for analysis. 3.0 - 5.5 FLETCHE R [facility] Marked hemolysis g/dl LAB Total Protein Specimen unsuitable for analysis. 6.0 - 8.5 FLETCH ER TORRES Marked hemolysis g/dl LAB Creatinine 0.9Comment: Marked 0.7 - 1.5 [facility] hemolysis mg/dl LAB BUN Specimen unsuitable for analysis. 10 - 26 mg/dl FLETCH ER TORRES Marked hemolysis LAB Calcium 9.8Comment: Marked 8.5 - 10.5 [facility] hemolysis mg/dl LAB Calculated Calcium CALC CA NOT AVAILABLE 8.5 - 10.5 [facility] Munoz Marked hemolysis mg/dl LAB Glucose, Serum Specimen unsuitable for analysis. 70 - 110 [facility] Marked hemolysis mg/dl LAB Specimen Performing Organization Address [facility] Phon e Number [facility] [address] [place] [address] SERVICES [facility] [address] [place] [address] HEMAGRAM (07/28/1999 15:25 EST) Pathologist Sig nature WBC 7.27 4.0 - 10.4 K/cmm [facility] RBC 5.03 4.36 - 5.78 M/cmm [facility] Hemoglobin 14.7 13.8 - 17.3 gm/dl [facility] HCT 44.0 39.5 - 50.2 % [facility] MCV 87 81 - 95 fl [facility] MCH 29.3 27.6 - 33.0 pg [facility] MCHC 33.4 32.8 - 36.4 gm/dl [facility] PLT 270 141 - 320 K/cmm [facility] RDW-CV 13.0 11.8 - 14.1 % [facility] Specimen Performing Organization Address [facility]/ZIP Code Phon e Number [facility] [address] [place] [address] SERVICES [facility] [address] [place] [address] documented in this encounter Visit Diagnoses Not on filedocumented in this encounter
[2022-04-01] MEDS: Enoxaparin 40 MG/0.4 ML SYR SC (19:09)
[2022-04-01] MEDS: Normal Saline 1,000 ML 30 ML IV (19:09)
[2022-04-01] MEDS: Gabapentin 300 MG CAP PO (21:32)
[2022-04-01] MEDS: Lidocaine 5% Patch 1 PATCH TP (21:32)
--- NOTE | 2022-04-01 22:00 | NUR.NOTE ---
Nursing Note: Lidocaine patch applied to upper mid back.
[2022-04-02 00:10] VITALS: RESP 16
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
[2022-04-02 04:00] VITALS: RESP 18
[2022-04-02] MEDS: Acetaminophen 500 MG TAB 1000 MG PO ×2 (05:19→12:25)
[2022-04-02] MEDS: Ketorolac 15 MG/ML VIAL IVP ×2 (05:19→12:24)
[2022-04-02 06:09] LABS: Abs Immature Grans 0.02 10^3/uL (0.0-0.06); Absolute Basophil Count 0.05 10^3/uL (0.0-0.2); Absolute Eosinophil Count 0.15 10^3/uL (0.0-0.7); Absolute Lymphocyte Count 2.92 10^3/uL (1.2-3.4); Absolute Monocyte Count 1.06 10^3/uL (0.1-0.8); Absolute Neutrophil Count 5.41 10^3/uL (1.2-6.7); Basophils % 0.5; Eosinophils % 1.6; HGB 13.3 g/dL (13.5-17.5); Immature Grans % 0.2; Lymphocytes % 30.4; MCH 29.2 pg (27.0-33.0); MCHC 33.3 % (32.0-36.0); MCV 88 fL (80-95); MPV 9.4 fL (8.0-11.0); Neutrophils % 56.3; Platelet Count 197 10^3/uL (130-400); RBC 4.55 10^6/uL (4.36-5.78); RDW 13.2 % (11.8-14.1); RDW-SD 42.6 fL; WBC 9.61 10^3/uL (4.4-10.8)
[2022-04-02 06:42] LABS: ALT 53 U/L (16-63); AST 40 U/L (15-37); Alkaline Phosphatase 61 U/L (46-116); Anion Gap 6.5 mmol/L (3-11); BUN 13 mg/dL (7-18); Bilirubin, Total 0.6 mg/dL (0.2-1.0); CO2 26.5 mmol/L (21.0-32.0); CREATININE 0.8 mg/dL (0.70-1.30); Calcium 8.4 mg/dL (8.5-10.1); Chloride 105 mmol/L (98-107); Glucose 102 mg/dL (74-106); Potassium 3.2 mmol/L (3.5-5.1); Sodium 138 mmol/L (136-145); Total Protein 6.1 g/dL (6.4-8.2)
[2022-04-02] MEDS: Psyllium PKT 1 EACH PO (07:38)
[2022-04-02] MEDS: Normal Saline Flush 10 ML SYR IVP ×2 (07:38→12:25)
[2022-04-02] MEDS: Gabapentin 100 MG CAP PO (07:38)
[2022-04-02] MEDS: Patch Removal 1 EACH TP (07:39)
[2022-04-02 08:15] VITALS: BP 128/78; PULSE 60; RESP 18; TEMP 36.7; O2SAT 97
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
--- NOTE | 2022-04-02 16:14 | PDOC.CMDIS ---
- If Service Date Differs Date of service: 04/02/22 Time of Service: 16:14 LACE Index Scoring Tool - Questions: Length of Stay (in days): 1 Acuity (Admit via E.D.?): Yes E.D. Visits: 1 - Answers: Total Score: 5 Risk of Readmission: Low Risk Care Management Discharge Reason for Hospitalization: intractable back pain Discharge Plan: Amrit will be discharged home with no new services. He will follow up with his PCP and plan of care and transport with his . Patient/Family Education Needs: Review of discharge instructions, limitations, activity, follow up plan, discuss Ask Me Three
== END 2022-04-02 13:45 | disposition home or self-care (01) ==
LOC: ER 17:01 → MS 22:53
PROVIDERS: Admitting Provider Surgery; Emergency Provider Physician Assistant; Visit Provider Surgery
DX: S27.321A Contusion of lung, unilateral, initial encounter (principal); M54.9 Dorsalgia, unspecified; V19.9XXA Pedal cyclist (driver) (passenger) injured in unspecified traffic accident, initial encounter; J30.2 Other seasonal allergic rhinitis; Z20.822 Contact with and (suspected) exposure to COVID-19
CPT/HCPCS: 36415; 74177; 80053; 87635; 96361; 96372; 96374; 96375; 96376; 97162; 99285; J1650; 70450; 71260; 72125; 85025; 99284; G0378; J1885; J3490